=== PATIENT | male | born 1940 | race Caucasian/White ===

== ENCOUNTER → 2016-11-10 | Outpatient (CLI) | payer OTHER, MEDICARE ==
[~2016-11-10] MED LIST: ALLO300T2 PO; AMLO2.5T PO; ASPI81TA82 PO; CARV25TA2 PO; FURO40TA3 PO; LOSA1TAB38 PO; MISCTAB88 PO; MULT-106 PO; PRED-301 PO; SILD100T PO
[2016-11-10 12:10] LABS: HEMATOCRIT 40.1 % (42-52); MEAN CELL VOLUME 91.3 fL (80-100); MEAN CORPUSCULAR HEMOGLOBIN 31.7 pg (25-34); MEAN CORPUSCULAR HGB CONC 34.7 g/dl (32-36); MEAN PLATELET VOLUME 10.2 fL (7.4-10.4); PLATELET COUNT 144 K/uL (130-400); RED BLOOD COUNT 4.39 M/uL (4.7-6.1); WHITE BLOOD COUNT 4.39 K/uL (4.8-10.8)
[2016-11-10 12:39] LABS: ALT/SGPT 35 U/L (12-78); AST/SGOT 17 U/L (15-37); BLOOD UREA NITROGEN 25 mg/dl (7-18); BUN/CREATININE RATIO 20.5 (10-20); CALCIUM 9.3 mg/dl (8.5-10.1); CARBON DIOXIDE 29 mmol/L (21-32); CHLORIDE 107 mmol/L (98-107); GLUCOSE 100 mg/dl (70-99); POTASSIUM 3.9 mmol/L (3.5-5.1); SODIUM 144 mmol/L (136-145)
[2016-11-10 12:41] LABS: ALB/GLOB RATIO 1.1 (0.9-2); ALKALINE PHOSPHATASE 73 U/L (45-117)
== END | disposition home or self-care (01) ==
LOC: C.LAB1850 10:52
PROVIDERS: ATTEND Internal Medicine Cardiovascular Disease
DX: I10 Essential (primary) hypertension (principal); I42.0 Dilated cardiomyopathy; I25.10 Atherosclerotic heart disease of native coronary artery without angina pectoris; E78.5 Hyperlipidemia, unspecified; I50.22 Chronic systolic (congestive) heart failure

== ENCOUNTER → 2016-12-01 | Outpatient (CLI) | payer OTHER, MEDICARE ==
[2016-12-01 16:34] LABS: BLOOD UREA NITROGEN 27 mg/dl (7-18); BUN/CREATININE RATIO 18.1 (10-20); CALCIUM 8.9 mg/dl (8.5-10.1); CARBON DIOXIDE 28 mmol/L (21-32); CHLORIDE 104 mmol/L (98-107); GLUCOSE 97 mg/dl (70-99); POTASSIUM 4.2 mmol/L (3.5-5.1); SODIUM 142 mmol/L (136-145)
== END | disposition home or self-care (01) ==
LOC: C.LAB1850 14:40
PROVIDERS: ATTEND Internal Medicine Cardiovascular Disease
DX: I10 Essential (primary) hypertension (principal); I42.0 Dilated cardiomyopathy; I25.10 Atherosclerotic heart disease of native coronary artery without angina pectoris; E78.5 Hyperlipidemia, unspecified; I50.22 Chronic systolic (congestive) heart failure

== ENCOUNTER → 2016-12-09 | Outpatient (CLI) | payer OTHER, MEDICARE ==
[2016-12-09 13:11] LABS: BLOOD UREA NITROGEN 23 mg/dl (7-18); BUN/CREATININE RATIO 19.5 (10-20); CARBON DIOXIDE 27 mmol/L (21-32); CHLORIDE 105 mmol/L (98-107); GLUCOSE 102 mg/dl (70-99); SODIUM 141 mmol/L (136-145)
== END | disposition home or self-care (01) ==
LOC: C.LAB1850 11:16
PROVIDERS: ATTEND Internal Medicine Cardiovascular Disease
DX: I50.22 Chronic systolic (congestive) heart failure (principal)

== ENCOUNTER → 2017-03-15 | Outpatient (CLI) | payer OTHER, MEDICARE ==
[2017-03-15 14:39] LABS: BASO % 0.7 %; BASO ABS # 0.04 K/uL (0-0.2); COMPLETE YES; HEMATOCRIT 42.5 % (42-52); IG% 0.2 %; LYMPH % 27.2 %; LYMPH ABS # 1.65 K/uL (1.2-3.4); MEAN CELL VOLUME 94.7 fL (80-100); MEAN CORPUSCULAR HEMOGLOBIN 31.2 pg (25-34); MEAN CORPUSCULAR HGB CONC 32.9 g/dl (32-36); MEAN PLATELET VOLUME 9.6 fL (7.4-10.4); MONO % 7.1 %; NEUT % 61.8 %; PLATELET COUNT 179 K/uL (130-400); RED BLOOD COUNT 4.49 M/uL (4.7-6.1); WHITE BLOOD COUNT 6.07 K/uL (4.8-10.8)
[2017-03-15 17:00] LABS: BLOOD UREA NITROGEN 26 mg/dl (7-18); BUN/CREATININE RATIO 26.5 (10-20); CARBON DIOXIDE 28 mmol/L (21-32); CHLORIDE 108 mmol/L (98-107); GLUCOSE 84 mg/dl (70-99); POTASSIUM 4.1 mmol/L (3.5-5.1); SODIUM 141 mmol/L (136-145)
== END | disposition home or self-care (01) ==
LOC: C.LAB1850 13:22
PROVIDERS: ATTEND Internal Medicine Geriatric Medicine
DX: I10 Essential (primary) hypertension (principal); K22.70 Barrett's esophagus without dysplasia; G47.30 Sleep apnea, unspecified; M19.90 Unspecified osteoarthritis, unspecified site; E78.5 Hyperlipidemia, unspecified

== ENCOUNTER → 2017-06-02 | Outpatient (CLI) | payer OTHER, MEDICARE ==
[~2017-06-02] VITALS: Ht 175.3 cm; Wt 97.6 kg
[2017-06-02 13:23] VITALS: BP 117/61; PULSE 58; Ht 175.3 cm; Wt 97.6 kg
== END | disposition home or self-care (01) ==
LOC: C.NEUR 12:42
PROVIDERS: ATTEND Internal Medicine Pulmonary Disease
DX: G47.30 Sleep apnea, unspecified (principal)

== ENCOUNTER → 2017-12-05 | Outpatient (CLI) | payer OTHER, MEDICARE ==
[2017-12-05 12:25] LABS: BASO % 1.2 %; BASO ABS # 0.07 K/uL (0-0.2); EOS % 3.2 %; EOS ABS # 0.18 K/uL (0-0.5); HEMATOCRIT 43.2 % (42-52); HEMOGLOBIN 14.9 g/dL (14.0-18.0); IG# 0.01 K/uL (0.00-0.02); LYMPH % 25.8 %; LYMPH ABS # 1.45 K/uL (1.2-3.4); MEAN CELL VOLUME 94.5 fL (80-100); MEAN CORPUSCULAR HEMOGLOBIN 32.6 pg (25-34); MEAN CORPUSCULAR HGB CONC 34.5 g/dl (32-36); MEAN PLATELET VOLUME 10.1 fL (7.4-10.4); MONO % 11.2 %; MONO ABS # 0.63 K/uL (0.11-0.59); NEUT % 58.4 %; NEUT ABS # 3.27 K/uL (1.4-6.5); PLATELET COUNT 156 K/uL (130-400); RED CELL DISTRIBUTION WIDTH CV 13.9 % (11.5-14.5); RED CELL DISTRIBUTION WIDTH SD 47.5 fL (36.4-46.3); WHITE BLOOD COUNT 5.61 K/uL (4.8-10.8)
[2017-12-05 12:40] LABS: ALT/SGPT 25 U/L (12-78); AST/SGOT 17 U/L (15-37); BLOOD UREA NITROGEN 33 mg/dl (7-18); CALCIUM 9.1 mg/dl (8.5-10.1); CARBON DIOXIDE 27 mmol/L (21-32); CREATININE 1.26 mg/dl (0.60-1.40); GLUCOSE 91 mg/dl (70-99); SODIUM 141 mmol/L (136-145); URIC ACID 5.3 mg/dl (2.6-7.2)
[2017-12-05 12:42] LABS: ALKALINE PHOSPHATASE 73 U/L (45-117); CHOLESTEROL 112 mg/dl (0-200); LDL CHOLESTEROL CALCULATED 52 mg/dl; TOTAL PROTEIN 7.6 gm/dl (6.4-8.2)
== END | disposition home or self-care (01) ==
LOC: C.LAB1850 11:11
PROVIDERS: ATTEND Internal Medicine Geriatric Medicine
DX: I10 Essential (primary) hypertension (principal); I25.10 Atherosclerotic heart disease of native coronary artery without angina pectoris; K22.70 Barrett's esophagus without dysplasia; M19.90 Unspecified osteoarthritis, unspecified site; M10.9 Gout, unspecified; E78.5 Hyperlipidemia, unspecified

== ENCOUNTER → 2018-06-22 | Outpatient (CLI) | payer OTHER, MEDICARE ==
[2018-06-22 12:24] LABS: HEMOGLOBIN A1C 5.3 % (4.5-5.6)
[2018-06-22 12:31] LABS: ALBUMIN 3.7 gm/dl (3.4-5.0); ALKALINE PHOSPHATASE 66 U/L (45-117); ALT/SGPT 24 U/L (12-78); AST/SGOT 15 U/L (15-37); BLOOD UREA NITROGEN 21 mg/dl (7-18); CALCIUM 8.5 mg/dl (8.5-10.1); CARBON DIOXIDE 27 mmol/L (21-32); CHOLESTEROL 89 mg/dl (0-200); GLUCOSE 96 mg/dl (70-99); LDL CHOLESTEROL CALCULATED 26 mg/dl; SODIUM 139 mmol/L (136-145); TOTAL PROTEIN 7.2 gm/dl (6.4-8.2)
== END | disposition home or self-care (01) ==
LOC: C.LAB1850 11:04
PROVIDERS: ATTEND Physician Assistant Medical
DX: Z00.00 Encounter for general adult medical examination without abnormal findings (principal); I25.10 Atherosclerotic heart disease of native coronary artery without angina pectoris

== ENCOUNTER 2021-04-21 15:21 | Observation (INO) ==
--- NOTE | 2021-04-21 16:55 | XRay Report ---
XR chest 1V portable CLINICAL HISTORY: Chest Pain COMPARISON STUDY: Chest radiograph March 11, 2021. FINDINGS: Lung volumes are normal. Lungs are clear. There is no pneumothorax or pleural effusion. Mod erate cardiomegaly is unchanged. Mediastinal contours are normal. There is no evidence for pulmonary edema. IMPRESSION: No acute cardiopulmonary findings. Cardiomegaly. ACT 112: Negative or not required by law. Electronically signed by: Nitin Oliveira M.D. 04/21/2021 4:53 PM
[2021-04-21 17:04] LABS: Basophils # (auto) 0.02 K/uL (0-0.2); Basophils % (auto) 0.2 %; Eosinophils # (auto) 0.02 K/uL (0-0.5); Eosinophils % (auto) 0.2 %; Hematocrit (blood only) 44.4 % (42-52); Hemoglobin 14.9 g/dL (14.0-18.0); Immature Granulocytes # (auto) 0.02 K/uL (0.00-0.02); Immature Granulocytes % (auto) 0.2 %; Lymphocytes # (auto) 0.55 K/uL (1.2-3.4); Mean Corpuscular Hemoglobin 33.2 pg (25-34); Mean Corpuscular Hgb Conc 33.6 g/dL (32-36); Mean Corpuscular Volume 98.9 fL (80-100); Mean Platelet Volume 10.2 fL (7.4-10.4); Monocytes % (auto) 6.3 %; Neutrophils # (auto) 9.79 K/uL (1.4-6.5); Neutrophils % (auto) 88.1 %; Platelet Count 174 K/uL (130-400); RDW Coefficient of Variation 13.8 % (11.5-14.5); RDW Standard Deviation 49.9 fL (36.4-46.3); Red Blood Count 4.49 M/uL (4.7-6.1)
[2021-04-21 17:12] LABS: INR 1.1 (0.9-1.1); Partial Thromboplastin Time 27.1 Seconds (21.0-31.0); Prothrombin Time 10.7 Seconds (9.0-12.0)
[2021-04-21 17:13] LABS: Alanine Aminotransferase 61 U/L (12-78); Albumin Level 4.4 gm/dl (3.4-5.0); Aspartate Aminotransferase 43 U/L (15-37); BUN Creatinine Ratio 21.8 (10-20); Blood Urea Nitrogen 24 mg/dl (7-18); Calcium 10.1 mg/dl (8.5-10.1); Carbon Dioxide 28 mmol/L (21-32); Chloride 105 mmol/L (98-107); Creatinine Clr Calc Pharmacy 60.6 ml/min; Est GFR (African American) 74.4 ml/min; Est GFR (Non-African American) 64.2 ml/min; Glucose 99 mg/dl (70-99); Lipase 68 U/L (73-393); Potassium 4.5 mmol/L (3.5-5.1); Sodium 140 mmol/L (136-145)
[2021-04-21 17:18] LABS: Alkaline Phosphatase 141 U/L (45-117); Bilirubin,Total 1.2 mg/dl (0.2-1); Globulin 4.4 gm/dl (2.5-4.0); Total Protein 8.8 gm/dl (6.4-8.2); Troponin I < 0.015 ng/ml (0-0.045)
[2021-04-21] MEDS ORDERED: FAMOTIDINE 20MG IV PUSH 20 MG/5 ML SYR IV STA (19:37)
[2021-04-21] MEDS ORDERED: diphenhydrAMINE 50 MG/ML VIAL IV STA (19:37)
[2021-04-21] MEDS ORDERED: ONDANSETRON INJ 2 MG/ML 2 ML VIAL IV STA (19:42)
[2021-04-21] MEDS ORDERED: methylPREDNISolone 125 MG/2 ML VIAL IV STA (19:42)
--- NOTE | 2021-04-21 19:42 | Emergency Department Note ---
Impression & Plan Abdominal pain, SBO (small bowel obstruction) ED Provider Note NAME: CASSANDRA BURNS AGE: 80 SEX: M : 1940 ARRIVES VIA: Walk-In INFORMANT: Patient, ED PROVIDER(S): Luis Miguel Martínez MD CHIEF COMPLAINT: abd pain HPI: This 80-year-old male who presents to the emergency department. The patient reports he and his were attending a today. The patient's reports that the patient has a history of issues with peanuts. The patient reports that he ate peanut butter on celery today before the and began having severe abdominal pain. Due to the complex medical history of the dorian ent's heart including a lesion in the LAD they did not take anything for pain as they were concerned that that could cause issues with the patient's heart. The patient reports the pain is a burning sensation. He reports vomiting upon arrival to the emergency department which caused the pain to feel better. He reports nothing makes the pain worse although the pain is starting to come back. He describes the pain as a spasm in nature with no radiation. ROS: See above HPI for pertinent positives & negatives. A total of 10 systems reviewed and were otherwise negative. PAST MEDICAL HISTORY: See Below PAST SURGICAL HISTORY: See Below FAMILY HISTORY: See Below SOCIAL HISTORY: See Below HOME MEDICATIONS: See Below ALLERGIES: See Below VITALS: See Below PHYSICAL EXAMINATION: VITAL SIGNS - Vital signs and nursing notes were reviewed. GENERAL - 80-year-old male appearing stated age who is in no acute distress. Communicates well with provider and answers questions appropriately. SKIN - Without rashes. HEAD - NC/AT. EYES - PERRL with EOMI bilaterally. Sclera anicteric. Palpebral conjunctiva pink and moist with no injection noted. EARS - No deformities of external structures noted on gross examination bilaterally. NOSE - Midline and without cyanosis. No epistaxis or purulent drainage noted. Septum midline without deviation or septal hematoma noted. MOUTH/OROPHARYNX - Without perioral cyanosis. Buccal mucosa pink and moist and without leukoplakia. Tongue midline with equal elevation of palate bilaterally. No tonsillar hypertrophy, erythema, or exudates noted. NECK - Neck with FROM. Supple to palpation. No nuchal rigidity. LUNGS - Chest wall symmetric without accessory muscle use, intercostals retractions, or central cyanosis. Normal vesicular breath sounds CTA B/L. No wheezes, rales, or rhonchi appreciated. CARDIAC - RRR with S1/S2. No murmur, rubs, or gallops appreciated. ABDOMEN - Abdominal contour without pulsations or visible masses. BS normoactive all four quadrants. Tender in epigastric area EXTREMITIES - No clubbing or peripheral cyanosis. No pretibial edema present. +3/5 radial, posterior tibial, and dorsalis pedis pulses palpated throughout. +5/5 strength noted in UE/LE bilaterally. NEUROLOGIC - Cranial nerves II through XII grossly intact. Sensory intact to light touch throughout. Patellar reflexes +2/4. PSYCH - A&Ox3 and cooperates fully with examiner. Pt is very pleasant and interacts well with examiner. MEDICAL DECISION MAKING: Patient was seen and evaluated as above in room C3. Review was performed of nursing notes and vital signs. I did review pertinent previous visits and patient history. After obtaining a thorough history and physical examination the above work up was performed. 80-year-old male who presents to the emergency department complaining of abdominal pain. The patient was given Solu-Medrol Benadryl and Pepcid. Repeat examination revealed improvement the patient's symptoms. I will note that the patient does not have an elevation in his white blood cell count however his CAT scan is concerning for a small bowel obstruction. Based on this I did discuss the case with both surgery as well as the medicine service who did agree to admit the patient. Both patient and are in agreement with treatment plan. An order was placed for continuous cardiac monitoring. The monitor shows a rate of 76 with Atrial Fib rhythm. The patient was evaluated during a period of high volume and high acuity during the global COVID-19 pandemic, and that diagnosis was suspected/considered upon their initial presentation. Their evaluation, treatment and testing was consistent with current guidelines for patients who present with complaints or symptoms that may be related to COVID-19. Patient was seen while provider was wearing PPE. Triage Nursing notes reviewed. Prior medical records reviewed Vital Signs: reviewed and remarkable for no significant abnormalities Differential diagnosis: Cardiac ischemia, aortic dissection, pulmonary embolism, pneumothorax, pneumonia, pericarditis, myocarditis, esophageal rupture, GERD, cholecystitis, pancreatitis, musculoskeletal, as well as other pathologies. ER treatment provided: See below Diagnostics interpreted by me: ECG: Atrial fib old anterior infarct QTC is 469 ventricular rate is [address] elevation or depression when compared with EKG of 09/15/2013 A. fib has replaced sinus rhythm anterior infarct is now present T wave inversion is no longer evident in the inferior leads. Repeat EKG shows atrial fibrillation old anterior infarct QTC is 467 ventricular rate is [address] elevation or depression it is unchanged from the previous EKG Laboratory studies: As stated above and show below. Imaging studies: CT abdomen pelvis with contrast: No prior exam for comparison. Multiple loops of small bowel distended up to 2.7 to 3.0 cm raising concern for small bowel obstruction. Zone of transition is indeterminate and likely within the mid distal ileum. There is a small bowel wall thickening such as image 31 series 2. Differential diagnosis therefore includes nonspecific enteritis versus inflammatory bowel disease, correlation with history of Crohn's recommended. Mild bilateral lower lobe atelectasis. Normal cardiac size with coronary artery calcifications. Unremarkable gallbladder and biliary system. Small low- attenuation lesion within the liver measuring 6 mm. Too small to characterize and likely benign such as a cyst. Normal bilateral adrenal glands. Normal spleen. Normal visualized pancreas. Mild bilateral perinephric stranding. Left-sided renal cysts. Largest seen within the lower pole measuring 3.2 cm maximal dimension. Small left-sided renal cyst. Largest seen in the mid upper pole measuring 1.2 cm. Remainder bilateral kidneys unremarkable. Unremarkable urinary bladder. Marked enlargement of the prostate gland with an indentation and invagination into the posterior urinary bladder. The prostate gland measures approximately 5 cm in craniocaudal dimension by 4.0 cm in AP dimension by 4.3 cm in transverse dimension. Unremarkable stomach normal appendix. The descending colon is decompressed. 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 Atherosclerotic disease of aorta with no aneurysm. Consultation(s): Gen Surgery Int Medicine Past Med/Surg History Medical History (Updated 04/24/21 @ 06:34 by Luis Miguel Martínez MD) Atrial fibrillation, permanent on eliquis--follows with Dr. Craig Robertson's esophagus Chronic anticoagulation eliquis bid Chronic systolic CHF (congestive heart failure) Coronary artery disease Dilated cardiomyopathy Esophageal stricture History of basal cell carcinoma Hyperlipidemia Hypertension Insomnia Obstructive sleep apnea does not use CPAP as ordered Osteoarthritis Surgical History History of bilateral cataract extraction History of cardiac cath 2010 @ [facility]--no stents History of colonoscopy with polypectomy History of esophagogastroduodenoscopy (EGD) History of intestinal surgery occured at age 3 days old, pt unsure of details. Denies any GI abnormalities or complications. History of repair of rotator cuff left Family History Grandfather Myocardial infarction Daughter Pancreatic cancer Hypothyroidism Father Stroke Other Hypertension No family history of adverse response to anesthesia Denies family history of Colon cancer Ovarian cancer Prostate cancer Breast cancer Social History Smoking Status: Never smoker Second Hand Exposure: No; Hx Alcohol Use: Yes Alcohol type: wine Alcohol Intake Frequency: 2-3 x/Week Alcohol Intake Frequency Comment: 1 times weekly Hx Substance Use: No Preferred Language: Burmese Communication Ability: Effective Visual Impairment: Diminished Hearing Ability: Normal Flooring Helper Required: No Beliefs That Will Affect Care: None marital status: Current Living Situation: Spouse current occupational status: retired Feels Safe at Home: Yes Childhood Exposure to Second-Hand Smoke: Yes Diet Comment: Elana's type diet from time to time caffeine: No Dental Care, Regularly: Yes Physical Activity Frequency: 1-2 Times per Week Physical Activity Frequency Comment: treadmill,weights Seatbelt Use: always Sunscreen Use: Yes Do you think of yourself as: straight/heterosexual Assistive Devices: Glasses Allergies Allergies Allergy/AdvReac Type Severity Reaction Status Date / Time lisinopril AdvReac Mild Cough. Verified 04/21/21 20:31 Home Meds Home Medications Medication Instructions Recorded Confirmed omeprazole 40 mg PO QAM 10/20/20 04/21/21 Joint Health 1 tab PO QAM 04/21/21 04/21/21 multivitamin 1 tab PO QAM 04/21/21 04/21/21 Previous Rx's Medication Instructions Recorded atorvastatin 40 mg tablet 40 mg PO HS #90 tab 09/26/20 carvedilol 25 mg tablet 25 mg PO BID #180 tab 09/26/20 sacubitril 97 mg-valsartan 103 mg 1 tab PO BID #180 tab 10/20/20 tablet loperamide 2 mg tablet 1 mg PO DAILY PRN #15 tab 12/02/20 furosemide 40 mg tablet 40 mg PO QAM #90 tab 12/17/20 apixaban 5 mg tablet 5 mg PO BID #180 tab 01/13/21 allopurinol 300 mg tablet 300 mg PO HS #90 tab 03/31/21 Results & Data (ED) Vital Signs Vital Signs - 24 hr 04/21/21 15:29 04/21/21 19:01 04/21/21 19:15 Temperature 36.4 C L Temperature Source Temporal Artery Scan Pulse Rate 85 82 82 Pulse Rate from SpO2 Sensor 80 83 Respiratory Rate 16 13 18 Blood Pressure 146/94 H 146/91 H Blood Pressure Mean 111 109 Pulse Oximetry 97 99 98 Oxygen Delivery Method Room Air Sepsis Recent Fever Within 48 Hours No Sepsis New/Unexplained Change in Mental Status N/A Sepsis Action Taken by Nursing No Action Required 04/21/21 19:30 04/21/21 19:52 04/21/21 20:00 Temperature Temperature Source Pulse Rate 86 80 81 Pulse Rate from SpO2 Sensor 86 81 80 Respiratory Rate 20 21 20 Blood Pressure 131/73 Blood Pressure Mean 92 Pulse Oximetry 97 95 92 Oxygen Delivery Method Sepsis Recent Fever Within 48 Hours Sepsis New/Unexplained Change in Mental Status Sepsis Action Taken by Nursing 04/21/21 20:30 04/21/21 21:08 Temperature Temperature Source Pulse Rate 76 76 Pulse Rate from SpO2 Sensor 76 77 Respiratory Rate 20 21 Blood Pressure 122/63 119/71 Blood Pressure Mean 82 87 Pulse Oximetry 94 96 Oxygen Delivery Method Room Air Room Air Sepsis Recent Fever Within 48 Hours Sepsis New/Unexplained Change in Mental Status Sepsis Action Taken by Nursing Laboratory Data Result diagrams: 04/22/21 08:27 04/22/21 08:27 Lab Results 04/21/21 04/21/21 04/21/21 Range/Units 16:44 16:44 16:44 WBC 11.10 H (4.8-10.8) K/uL RBC 4.49 L (4.7-6.1) M/uL Hgb 14.9 (14.0-18.0) g/dL Hct 44.4 (42-52) % MCV 98.9 (80-100) fL MCH 33.2 (25-34) pg MCHC 33.6 (32-36) g/dL RDW Std Deviation 49.9 H (36.4-46.3) fL RDW Coeff of Rosario 13.8 (11.5-14.5) % Plt Count 174 (130-400) K/uL MPV 10.2 (7.4-10.4) fL Immature Gran % (Auto) 0.2 % Neut % (Auto) 88.1 % Lymph % (Auto) 5.0 % Ponce % (Auto) 6.3 % Eos % (Auto) 0.2 % Baso % (Auto) 0.2 % Neut # (Auto) 9.79 H (1.4-6.5) K/uL Lymph # (Auto) 0.55 L (1.2-3.4) K/uL Ponce # (Auto) 0.70 H (0.11-0.59) K/uL Eos # (Auto) 0.02 (0-0.5) K/uL Baso # (Auto) 0.02 (0-0.2) K/uL Immature Gran # (Auto) 0.02 (0.00-0.02) K/uL PT 10.7 (9.0-12.0) Seconds INR 1.1 (0.9-1.1) APTT 27.1 (21.0-31.0) Seconds PTT Ratio 1.0 Sodium 140 (136-145) mmol/L Potassium 4.5 (3.5-5.1) mmol/L Chloride 105 (98-107) mmol/L Carbon Dioxide 28 (21-32) mmol/L Anion Gap 7.0 (3-11) BUN 24 H (7-18) mg/dl Creatinine 1.09 (0.6-1.4) mg/dl Est Cr Clr Drug Dosing 60.6 ml/min Est GFR ( Amer) 74.4 ml/min Est GFR (Non-Af Amer) 64.2 ml/min BUN/Creatinine Ratio 21.8 H (10-20) Glucose 99 (70-99) mg/dl Calcium 10.1 (8.5-10.1) mg/dl Total Bilirubin 1.2 H (0.2-1) mg/dl AST 43 H (15-37) U/L ALT 61 (12-78) U/L Alkaline Phosphatase 141 H (45-117) U/L Troponin I < 0.015 (0-0.045) ng/ml NT-Pro-B Natriuret Pep (0-1800) pg/ml Total Protein 8.8 H (6.4-8.2) gm/dl Albumin 4.4 (3.4-5.0) gm/dl Globulin 4.4 H (2.5-4.0) gm/dl Albumin/Globulin Ratio 1.0 (0.9-2) Lipase 68 L (73-393) U/L COVID-19 Eval Order SARS-CoV-2 (PCR) (Negative) 04/21/21 04/21/21 04/21/21 Range/Units 16:44 19:55 19:55 WBC (4.8-10.8) K/uL RBC (4.7-6.1) M/uL Hgb (14.0-18.0) g/dL Hct (42-52) % MCV (80-100) fL MCH (25-34) pg MCHC (32-36) g/dL RDW Std Deviation (36.4-46.3) fL RDW Coeff of Rosario (11.5-14.5) % Plt Count (130-400) K/uL MPV (7.4-10.4) fL Immature Gran % (Auto) % Neut % (Auto) % Lymph % (Auto) % Ponce % (Auto) % Eos % (Auto) % Baso % (Auto) % Neut # (Auto) (1.4-6.5) K/uL Lymph # (Auto) (1.2-3.4) K/uL Ponce # (Auto) (0.11-0.59) K/uL Eos # (Auto) (0-0.5) K/uL Baso # (Auto) (0-0.2) K/uL Immature Gran # (Auto) (0.00-0.02) K/uL PT (9.0-12.0) Seconds INR (0.9-1.1) APTT (21.0-31.0) Seconds PTT Ratio Sodium (136-145) mmol/L Potassium (3.5-5.1) mmol/L Chloride (98-107) mmol/L Carbon Dioxide (21-32) mmol/L Anion Gap (3-11) BUN (7-18) mg/dl Creatinine (0.6-1.4) mg/dl Est Cr Clr Drug Dosing ml/min Est GFR ( Amer) ml/min Est GFR (Non-Af Amer) ml/min BUN/Creatinine Ratio (10-20) Glucose (70-99) mg/dl Calcium (8.5-10.1) mg/dl Total Bilirubin (0.2-1) mg/dl AST (15-37) U/L ALT (12-78) U/L Alkaline Phosphatase (45-117) U/L Troponin I (0-0.045) ng/ml NT-Pro-B Natriuret Pep 6951 H (0-1800) pg/ml Total Protein (6.4-8.2) gm/dl Albumin (3.4-5.0) gm/dl Globulin (2.5-4.0) gm/dl Albumin/Globulin Ratio (0.9-2) Lipase (73-393) U/L COVID-19 Eval Order Covid19 at [facility] SARS-CoV-2 (PCR) NEGATIVE (Negative) 04/21/21 Range/Units 21:04 WBC (4.8-10.8) K/uL RBC (4.7-6.1) M/uL Hgb (14.0-18.0) g/dL Hct (42-52) % MCV (80-100) fL MCH (25-34) pg MCHC (32-36) g/dL RDW Std Deviation (36.4-46.3) fL RDW Coeff of Rosario (11.5-14.5) % Plt Count (130-400) K/uL MPV (7.4-10.4) fL Immature Gran % (Auto) % Neut % (Auto) % Lymph % (Auto) % Ponce % (Auto) % Eos % (Auto) % Baso % (Auto) % Neut # (Auto) (1.4-6.5) K/uL Lymph # (Auto) (1.2-3.4) K/uL Ponce # (Auto) (0.11-0.59) K/uL Eos # (Auto) (0-0.5) K/uL Baso # (Auto) (0-0.2) K/uL Immature Gran # (Auto) (0.00-0.02) K/uL PT (9.0-12.0) Seconds INR (0.9-1.1) APTT (21.0-31.0) Seconds PTT Ratio Sodium (136-145) mmol/L Potassium (3.5-5.1) mmol/L Chloride (98-107) mmol/L Carbon Dioxide (21-32) mmol/L Anion Gap (3-11) BUN (7-18) mg/dl Creatinine (0.6-1.4) mg/dl Est Cr Clr Drug Dosing ml/min Est GFR ( Amer) ml/min Est GFR (Non-Af Amer) ml/min BUN/Creatinine Ratio (10-20) Glucose (70-99) mg/dl Calcium (8.5-10.1) mg/dl Total Bilirubin (0.2-1) mg/dl AST (15-37) U/L ALT (12-78) U/L Alkaline Phosphatase (45-117) U/L Troponin I < 0.015 (0-0.045) ng/ml NT-Pro-B Natriuret Pep (0-1800) pg/ml Total Protein (6.4-8.2) gm/dl Albumin (3.4-5.0) gm/dl Globulin (2.5-4.0) gm/dl Albumin/Globulin Ratio (0.9-2) Lipase (73-393) U/L COVID-19 Eval Order SARS-CoV-2 (PCR) (Negative) Administered Medications Discontinued Medications Allopurinol (Allopurinol 300 Mg Tab) 300 mg PO HS FERNANDO Stop: 05/22/21 16:24 Last Admin: 04/22/21 17:38 Dose: 300 mg Documented by: [id number] Apixaban (Apixaban 5 Mg Tablet) 5 mg PO BID FERNANDO Stop: 05/22/21 16:24 Last Admin: 04/22/21 17:38 Dose: 5 mg Documented by: [id number] Atorvastatin Calcium (Atorvastatin 40 Mg Tab) 40 mg PO HS FERNANDO Stop: 05/22/21 16:24 Last Admin: 04/22/21 17:39 Dose: 40 mg Documented by: [id number] Carvedilol (Carvedilol 25 Mg Tab) 25 mg PO BID FERNANDO Stop: 05/22/21 16:24 Last Admin: 04/22/21 17:38 Dose: 25 mg Documented by: [id number] Diphenhydramine HCl (Diphenhydramine 50 Mg/Ml Vial) 25 mg IV NOW STA Stop: 04/21/21 19:38 Last Admin: 04/21/21 19:52 Dose: 25 mg Documented by: [id number] Furosemide (Furosemide 40 Mg/4 Ml Vial) 20 mg IV NOW STA Stop: 04/21/21 23:06 Last Admin: 04/21/21 23:16 Dose: 20 mg Documented by: [id number] Heparin Sodium/Dextrose (Heparin Iv Adult Wt-Based Standard *No* Bolus Protocol) 1 ea N/A ONE ONE; Protocol Stop: 04/22/21 00:08 Last Admin: 04/22/21 00:28 Dose: Not Given Documented by: [id number] Famotidine (Pepcid 20mg Iv Push) 20 mg in 5 mls @ 2.5 mls/min IV NOW STA Stop: 04/21/21 19:38 Last Admin: 04/21/21 19:52 Dose: 2.5 mls/min Documented by: [id number] Sodium Chloride (Nss 1000ml) 500 mls @ 999 mls/hr IV .Q31M ONE Stop: 04/21/21 22:38 Last Infusion: 04/21/21 22:57 Dose: 0 mls/hr Documented by: [id number] Admin: 04/21/21 22:17 Dose: 999 mls/hr Documented by: [id number] Heparin Sodium/Dextrose (Heparin Sodium/Dextrose) 25,000 units in 500 mls @ 28 mls/hr IV .[id number] [facility]; Protocol Stop: 05/22/21 00:21 Last Titration: 04/22/21 16:32 Dose: 0 units/hr, 0 mls/hr Documented by: [id number] Cosigned by: [id number] Titration: 04/22/21 11:27 Dose: 1,100 units/hr, 22 mls/hr Documented by: [id number] Cosigned by: [id number] Titration: 04/22/21 09:20 Dose: 0 units/hr, 0 mls/hr Documented by: [id number] Cosigned by: [id number] Titration: 04/22/21 07:03 Dose: 1,400 units/hr, 28 mls/hr Documented by: [id number] Cosigned by: [id number] Admin: 04/22/21 02:05 Dose: 1,400 units/hr, 28 mls/hr Documented by: [id number] Cosigned by: [id number] Furosemide 20 mg/ Syringe 2 mls @ 4 mls/min IV QAM [facility] Stop: 05/22/21 08:59 Last Admin: 04/22/21 09:47 Dose: 4 mls/min Documented by: [id number] Ioversol (Optiray 320 100ml) 94 ml IV ONCE ONE Stop: 04/21/21 20:46 Last Admin: 04/21/21 20:46 Dose: 94 ml Documented by: [id number] Methylprednisolone (Methylprednisolone 125 Mg/2 Ml Vial) 60 mg IV NOW STA Stop: 04/21/21 19:43 Last Admin: 04/21/21 19:52 Dose: 60 mg Documented by: [id number] Ondansetron HCl (Ondansetron Inj 2 Mg/Ml 2 Ml Vial) 4 mg IV NOW STA Stop: 04/21/21 19:43 Last Admin: 04/21/21 19:52 Dose: 4 mg Documented by: [id number] Sacubitril/Valsartan (Sacubitril-Valsartan 97-103 Mg Tab) 1 tab PO BID [facility] Stop: 05/22/21 16:24 Last Admin: 04/22/21 17:37 Dose: 1 tab Documented by: [id number] Imaging Data Radiologist's Impression: Chest X-Ray 04/21/21 16:38 XR chest 1V portable CLINICAL HISTORY: Chest Pain COMPARISON STUDY: Chest radiograph March 11, 2021. FINDINGS: Lung volumes are normal. Lungs are clear. There is no pneumothorax or pleural effusion. Moderate cardiomegaly is unchanged. Mediastinal contours are normal. There is no evidence for pulmonary edema. IMPRESSION: No acute cardiopulmonary findings. Cardiomegaly. ACT 112: Negative or not required by law. Electronically signed by: Nitin Oliveira M.D. 04/21/2021 4:53 PM Discharge Plan Visit Data Chief Complaint: Cardiac Assessment Stated Complaint: HX OF CARDIAC,ABD PAIN ED Provider: Luis Miguel Martínez Discharge Problem: Abdominal pain, SBO (small bowel obstruction) Patient Disposition: Admitted As Inpatient Discharge Instructions Interventions: ED Discharge Assessment Last Done: 04/22/21 00:54 Discharge Problem: Abdominal pain Qualifiers: Abdominal location: unspecified location Qualified Code(s): R10.9 - Unspecified abdominal pain
[2021-04-21] MEDS ORDERED: OPTIRAY 320 100ml IV ONE (20:45)
[2021-04-21] MEDS ORDERED: SODIUM CHLORIDE 0.9% 1000ML 500 ML IV ONE (22:08)
--- NOTE | 2021-04-21 22:47 | History & Physical Report ---
Date of Service April 21, 2021 Assessment & Plan (1) Small bowel obstruction: Merrill Elder is a 80-year-old male with extensive past medical history of coronary artery disease, recently seen by [facility] for consideration of CABG, as he is continued to be followed with [facility]; who presents for concerns of abdominal pain and distention earlier in the day following eating some peanut butter. Small bowel obstruction: -CT abdomen pelvis demonstrating concerns for small bowel obstruction versus ileitis -As pain is currently well controlled and he is not having any symptoms we will hold off on NG placement -Consideration of placement of NG should distention or increased abdominal pain occur -N.p.o. at this time -Surgery consulted: Will continue to follow along Acute on chronic systolic congestive heart failure: -BNP elevated on admission -Continue converted home diuretic via IV at this time -See if additional dose of IV Lasix in ED Atrial fibrillation: -EKG in ED continue to demonstrate atrial fibrillation -Holding Eliquis while n.p.o. for small bowel obstruction -Started on heparin gtt for continued anticoagulation while n.p.o. Coronary artery disease: -Cardiology consulted: As patient wants to continue to discuss CABG options versus potential alternative medication routes Diet: NPO CODE STATUS: Full code DVT prophylaxis: Heparin gtt (2) Atrial fibrillation, permanent: (3) Chronic systolic CHF (congestive heart failure): (4) Coronary artery disease: (5) Hyperlipidemia: History of Present Illness Primary Care Provider: Hu Dorsey DO Merrill Elder is a 80-year-old male with extensive past medical history of coronary artery disease, recently seen by [facility] for consideration of CABG, as he is continued to be followed with [facility]; who presents for concerns of abdominal pain and distention earlier in the day following eating some peanut butter. Earlier in the day he was going to a , had prior to that some toast with celery and peanut butter and a banana, shortly thereafter he started to notice he was having some discomfort across his abdomen. This is not the first time he has had similar kind of feeling, 9 years ago while at a [employer] football game he had eaten many peanuts has had a similar reaction and ended up in the hospital for a small bowel obstruction at that time. This is happened one other time in the intervening time but only associated with peanuts. Does eat peanut butter on a regular basis and had never had this kind of reaction before. In the ED received Benadryl, Solu-Medrol, Pepcid which alleviated the pain, however given the distention and CT imaging decision for admission was made. Of note he was scheduled to see cardiology Dr. Craig tomorrow, for continued discussions regarding his coronary artery disease following recent visit down to [facility] and evaluation of potential CABG versus coronary artery stenting for LAD lesion. As he is going to be admitted desires to have these conversations inpatient and would like Dr. Craig if he is available to continue his conversations. He is currently not having any chest pain, shortness of breath, palpitations, nausea, vomiting, abdominal pain, changes in bowel movements, lightheadedness, or dizziness. Allergies Allergy/AdvReac Type Severity Reaction Status Date / Time lisinopril AdvReac Mild Cough. Verified 04/21/21 20:31 Home Medications Medication Instructions Recorded Confirmed Type atorvastatin 40 mg tablet 40 mg PO HS #90 tab 09/26/20 04/21/21 Rx carvedilol 25 mg tablet 25 mg PO BID #180 tab 09/26/20 04/21/21 Rx omeprazole 40 mg PO QAM 10/20/20 04/21/21 History sacubitril 97 mg-valsartan 103 mg 1 tab PO BID #180 tab 10/20/20 04/21/21 Rx tablet loperamide 2 mg tablet 1 mg PO DAILY PRN #15 tab 12/02/20 04/21/21 Rx furosemide 40 mg tablet 40 mg PO QAM #90 tab 12/17/20 04/21/21 Rx apixaban 5 mg tablet 5 mg PO BID #180 tab 01/13/21 04/21/21 Rx allopurinol 300 mg tablet 300 mg PO HS #90 tab 03/31/21 04/21/21 Rx [facility] 1 tab PO QAM 04/21/21 04/21/21 History multivitamin 1 tab PO QAM 04/21/21 04/21/21 History Past Med/Surg History Medical History (Updated 04/22/21 @ 00:05 by Bandar Briggs MD) Atrial fibrillation, permanent on eliquis--follows with Dr. Craig Robertson's esophagus Chronic anticoagulation eliquis bid Chronic systolic CHF (congestive heart failure) Coronary artery disease Dilated cardiomyopathy Esophageal stricture History of basal cell carcinoma Hyperlipidemia Hypertension Insomnia Obstructive sleep apnea does not use CPAP as ordered Osteoarthritis Surgical History History of bilateral cataract extraction History of cardiac cath 2010 @ [facility]--no stents History of colonoscopy with polypectomy History of esophagogastroduodenoscopy (EGD) History of intestinal surgery occured at age 3 days old, pt unsure of details. Denies any GI abnormalities or complications. History of repair of rotator cuff left Family History Grandfather Myocardial infarction Daughter Pancreatic cancer Hypothyroidism Father Stroke Other Hypertension No family history of adverse response to anesthesia Denies family history of Colon cancer Ovarian cancer Prostate cancer Breast cancer Social History Smoking Status: Never smoker Second Hand Exposure: No; Hx Alcohol Use: Yes Alcohol type: wine Alcohol Intake Frequency: 2-3 x/Week Alcohol Intake Frequency Comment: 1 times weekly Hx Substance Use: No Preferred Language: Mongolian Communication Ability: Effective Visual Impairment: Diminished Hearing Ability: Normal Income Tax Auditor Required: No Beliefs That Will Affect Care: None marital status: Current Living Situation: Spouse current occupational status: retired Feels Safe at Home: Yes Childhood Exposure to Second-Hand Smoke: Yes Diet Comment: Elana's type diet from time to time caffeine: No Dental Care, Regularly: Yes Physical Activity Frequency: 1-2 Times per Week Physical Activity Frequency Comment: treadmill,weights Seatbelt Use: always Sunscreen Use: Yes Do you think of yourself as: straight/heterosexual Assistive Devices: Glasses Review of Systems Review of Systems: All systems reviewed & are unremarkable except as noted in HPI & below Physical Exam Constitutional: WD/WN, vitals as above Eyes: PERRL, conjunctivae normal, anicteric sclerae Respiratory: normal respiratory effort, lungs clear to auscultation Auscultation: no crackles, no rales, no rhonchi and no wheezes Cardiovascular: Rate/Rhythm: + irregularly irregular Heart Sounds: no gallop, no murmur and no cardiac rub Vessels: normal peripheral pulses; no JVD Extremities: no edema Gastrointestinal (Abdomen): Inspection/Auscultation: normal bowel sounds; abdomen not distended Percussion/Palpation: abdomen soft and normal to percussion; abdomen nontender and no guarding Musculoskeletal: no cyanosis or clubbing, extremities motor strength 5/5 Skin: no rashes, warm and dry Neurologic: PERRL, EOMI, accommodation nl, no face palsy, no dysarthria CN's II-XI intact bilaterally and moves all extremities Psychiatric: Orientation: alert and oriented x 3 Results & Data Results & Data ([facility]) Vital Signs (Past 12 Hours) Vital Signs Temp Pulse Resp BP Pulse Ox 04/21/21 22:00 73 17 127/73 96 04/21/21 21:30 77 20 125/70 93 04/21/21 21:09 78 21 96 04/21/21 21:08 76 21 119/71 96 04/21/21 20:30 76 20 122/63 94 04/21/21 20:00 81 20 92 04/21/21 19:52 80 21 131/73 95 04/21/21 19:30 86 20 97 04/21/21 19:15 82 18 98 04/21/21 19:01 82 13 146/91 H 99 04/21/21 15:29 36.4 C L 85 16 146/94 H 97 Laboratory Results 04/21/21 04/21/21 04/21/21 Range/Units 21:04 19:55 19:55 WBC (4.8-10.8) K/uL RBC (4.7-6.1) M/uL Hgb (14.0-18.0) g/dL Hct (42-52) % MCV (80-100) fL MCH (25-34) pg MCHC (32-36) g/dL RDW Std Deviation (36.4-46.3) fL RDW Coeff of Rosario (11.5-14.5) % Plt Count (130-400) K/uL MPV (7.4-10.4) fL Immature Gran % (Auto) % Neut % (Auto) % Lymph % (Auto) % [place] % (Auto) % Eos % (Auto) % Baso % (Auto) % Neut # (Auto) (1.4-6.5) K/uL Lymph # (Auto) (1.2-3.4) K/uL [place] # (Auto) (0.11-0.59) K/uL Eos # (Auto) (0-0.5) K/uL Baso # (Auto) (0-0.2) K/uL Immature Gran # (Auto) (0.00-0.02) K/uL PT (9.0-12.0) Seconds INR (0.9-1.1) APTT (21.0-31.0) Seconds PTT Ratio Sodium (136-145) mmol/L Potassium (3.5-5.1) mmol/L Chloride (98-107) mmol/L Carbon Dioxide (21-32) mmol/L Anion Gap (3-11) BUN (7-18) mg/dl Creatinine (0.6-1.4) mg/dl Est Cr Clr Drug Dosing ml/min Est GFR ( Amer) ml/min Est GFR (Non-Af Amer) ml/min BUN/Creatinine Ratio (10-20) Glucose (70-99) mg/dl Calcium (8.5-10.1) mg/dl Total Bilirubin (0.2-1) mg/dl AST (15-37) U/L ALT (12-78) U/L Alkaline Phosphatase (45-117) U/L Troponin I < 0.015 (0-0.045) ng/ml NT-Pro-B Natriuret Pep (0-1800) pg/ml Total Protein (6.4-8.2) gm/dl Albumin (3.4-5.0) gm/dl Globulin (2.5-4.0) gm/dl Albumin/Globulin Ratio (0.9-2) Lipase (73-393) U/L COVID-19 Eval Order Covid19 at [facility] SARS-CoV-2 (PCR) NEGATIVE (Negative) 04/21/21 04/21/21 04/21/21 Range/Units 16:44 16:44 16:44 WBC (4.8-10.8) K/uL RBC (4.7-6.1) M/uL Hgb (14.0-18.0) g/dL Hct (42-52) % MCV (80-100) fL MCH (25-34) pg MCHC (32-36) g/dL RDW Std Deviation (36.4-46.3) fL RDW Coeff of Rosario (11.5-14.5) % Plt Count (130-400) K/uL MPV (7.4-10.4) fL Immature Gran % (Auto) % Neut % (Auto) % Lymph % (Auto) % [place] % (Auto) % Eos % (Auto) % Baso % (Auto) % Neut # (Auto) (1.4-6.5) K/uL Lymph # (Auto) (1.2-3.4) K/uL [place] # (Auto) (0.11-0.59) K/uL Eos # (Auto) (0-0.5) K/uL Baso # (Auto) (0-0.2) K/uL Immature Gran # (Auto) (0.00-0.02) K/uL PT 10.7 (9.0-12.0) Seconds INR 1.1 (0.9-1.1) APTT 27.1 (21.0-31.0) Seconds PTT Ratio 1.0 Sodium 140 (136-145) mmol/L Potassium 4.5 (3.5-5.1) mmol/L Chloride 105 (98-107) mmol/L Carbon Dioxide 28 (21-32) mmol/L Anion Gap 7.0 (3-11) BUN 24 H (7-18) mg/dl Creatinine 1.09 (0.6-1.4) mg/dl Est Cr Clr Drug Dosing 60.6 ml/min Est GFR ( Amer) 74.4 ml/min Est GFR (Non-Af Amer) 64.2 ml/min BUN/Creatinine Ratio 21.8 H (10-20) Glucose 99 (70-99) mg/dl Calcium 10.1 (8.5-10.1) mg/dl Total Bilirubin 1.2 H (0.2-1) mg/dl AST 43 H (15-37) U/L ALT 61 (12-78) U/L Alkaline Phosphatase 141 H (45-117) U/L Troponin I < 0.015 (0-0.045) ng/ml NT-Pro-B Natriuret Pep 6951 H (0-1800) pg/ml Total Protein 8.8 H (6.4-8.2) gm/dl Albumin 4.4 (3.4-5.0) gm/dl Globulin 4.4 H (2.5-4.0) gm/dl Albumin/Globulin Ratio 1.0 (0.9-2) Lipase 68 L (73-393) U/L COVID-19 Eval Order SARS-CoV-2 (PCR) (Negative) 04/21/21 Range/Units 16:44 WBC 11.10 H (4.8-10.8) K/uL RBC 4.49 L (4.7-6.1) M/uL Hgb 14.9 (14.0-18.0) g/dL Hct 44.4 (42-52) % MCV 98.9 (80-100) fL MCH 33.2 (25-34) pg MCHC 33.6 (32-36) g/dL RDW Std Deviation 49.9 H (36.4-46.3) fL RDW Coeff of Rosario 13.8 (11.5-14.5) % Plt Count 174 (130-400) K/uL MPV 10.2 (7.4-10.4) fL Immature Gran % (Auto) 0.2 % Neut % (Auto) 88.1 % Lymph % (Auto) 5.0 % [place]t % (Auto) 6.3 % Eos % (Auto) 0.2 % Baso % (Auto) 0.2 % Neut # (Auto) 9.79 H (1.4-6.5) K/uL Lymph # (Auto) 0.55 L (1.2-3.4) K/uL [place]t # (Auto) 0.70 H (0.11-0.59) K/uL Eos # (Auto) 0.02 (0-0.5) K/uL Baso # (Auto) 0.02 (0-0.2) K/uL Immature Gran # (Auto) 0.02 (0.00-0.02) K/uL PT (9.0-12.0) Seconds INR (0.9-1.1) APTT (21.0-31.0) Seconds PTT Ratio Sodium (136-145) mmol/L Potassium (3.5-5.1) mmol/L Chloride (98-107) mmol/L Carbon Dioxide (21-32) mmol/L Anion Gap (3-11) BUN (7-18) mg/dl Creatinine (0.6-1.4) mg/dl Est Cr Clr Drug Dosing ml/min Est GFR ( Amer) ml/min Est GFR (Non-Af Amer) ml/min BUN/Creatinine Ratio (10-20) Glucose (70-99) mg/dl Calcium (8.5-10.1) mg/dl Total Bilirubin (0.2-1) mg/dl AST (15-37) U/L ALT (12-78) U/L Alkaline Phosphatase (45-117) U/L Troponin I (0-0.045) ng/ml NT-Pro-B Natriuret Pep (0-1800) pg/ml Total Protein (6.4-8.2) gm/dl Albumin (3.4-5.0) gm/dl Globulin (2.5-4.0) gm/dl Albumin/Globulin Ratio (0.9-2) Lipase (73-393) U/L COVID-19 Eval Order SARS-CoV-2 (PCR) (Negative) Diagnostic Findings Impressions Chest X-Ray 04/21/21 16:38 XR chest 1V portable CLINICAL HISTORY: Chest Pain COMPARISON STUDY: Chest radiograph March 11, 2021. FINDINGS: Lung volumes are normal. Lungs are clear. There is no pneumothorax or pleural effusion. Moderate cardiomegaly is unchanged. Mediastinal contours are normal. There is no evidence for pulmonary edema. IMPRESSION: No acute cardiopulmonary findings. Cardiomegaly. ACT 112: Negative or not required by law. Electronically signed by: Nitin Oliveira M.D. 04/21/2021 4:[address] ABDOMEN & PELVIS With Contrast: No prior exam for comparison. Multiple loops of small bowel distended up to 2.7-3.0 cm raising the concern for small bowel obstruction. Zone of transition is indeterminate and likely within the mid distal ileum. Areas of small bowel wall thickening such as image 31, series 2. Differential diagnosis therefore includes nonspecific enteritis versus inflammatory bowel disease, correlation with history of Crohn's recommended. Mild bilateral lower lobe atelectasis. Normal cardiac size with coronary artery calcifications. Unremarkable gallbladder and biliary system. Small low-attenuation lesion within the liver measuring 6 mm, too small to characterize and likely benign such as cyst. Normal bilateral adrenal glands. Normal spleen. Normal visualized pancreas. Mild bilateral perinephric stranding. Left-sided renal cysts, largest seen within the lower pole measuring 3.2 cm maximal dimension. Small left-sided renal cyst, largest seen in the mid upper pole measuring 1.2 cm. Remainder bilateral kidneys unremarkable. Unremarkable urinary bladder. Marked enlargement of the prostate gland with indentation and invagination into the posterior urinary bladder, the prostate gland measuring approximately 5 cm in craniocaudal dimension by 4.0 cm in AP dimension by 4.3 cm in transverse dimension. Unremarkable stomach. Normal appendix. The descending colon is decompressed. 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 Atherosclerotic disease of aorta with no aneurysm. Radiologist: Cande Munoz MD Medications Administered Home Medication List Medication Instructions Recorded atorvastatin 40 mg tablet 40 mg PO HS #90 tab 09/26/20 carvedilol 25 mg tablet 25 mg PO BID #180 tab 09/26/20 omeprazole 40 mg PO QAM 10/20/20 sacubitril 97 mg-valsartan 103 mg 1 tab PO BID #180 tab 10/20/20 tablet loperamide 2 mg tablet 1 mg PO DAILY PRN #15 tab 12/02/20 furosemide 40 mg tablet 40 mg PO QAM #90 tab 12/17/20 apixaban 5 mg tablet 5 mg PO BID #180 tab 01/13/21 allopurinol 300 mg tablet 300 mg PO HS #90 tab 03/31/21 [id number] 1 tab PO QAM 04/21/21 [[facility]] multivitamin 1 tab PO QAM 04/21/21 Supervising Physician Co-Signing Physician Notes Attending addendum: I have physically seen this patient, have supervised the medical residents activities, and agree with the H&P unless as otherwise noted. Assessment and Plan: Small bowel obstruction- Probable transition point in the mid to distal ileum NPO Not requiring NG tube at this time, will place if Symptoms progress and not controlled by medications Zosyn 4.5 g IV every 8 hours General surgery has been consulted Acute on chronic HFpEF/atrial fibrillation/CAD- Changing Lasix to IV and follow clinical examination closely Eliquis on hold, and replaced by heparin ip Cardiology consulted as noted Remaining orders and notations as noted Resident Activity Tracking Resident Involvement: Resident Care Provided Care Provided: Adult Hospital Medicine
[2021-04-21] MEDS ORDERED: FUROSEMIDE 40 MG/4 ML VIAL IV STA (23:05)
[2021-04-22] MEDS ORDERED: Heparin IV Adult Wt-Based Standard *NO* Bolus Protocol ONE (00:07)
[2021-04-22] MEDS ORDERED: HEPARIN SODIUM/DEXTROSE 25,000 UNITS/500 ML BAG IV SCH (00:22)
[2021-04-22] MEDS ORDERED: NITROGLYCERIN SL 0.4 MG/TAB TAB SL PRN (01:23)
[2021-04-22] MEDS ORDERED: ONDANSETRON INJ 2 MG/ML 2 ML VIAL IV PRN (01:23)
[2021-04-22] MEDS ORDERED: MoRPHine SULFATE 2 MG/ML CARP IV PRN (01:23)
--- NOTE | 2021-04-22 07:29 | CT Scan Report ---
CT abd pelvis IV con only CLINICAL HISTORY: Pt c/o abd pain COMPARISON STUDY: None. TECHNIQUE: A dose lowering technique was utilized adhering to the principles of ALARA. CT DOSE: 951.99 mGycm FINDINGS: Lower chest: Minimal atelectasis at dependent portions of bilateral lower lobes. Trace pericardial ef fusion is seen.. Partially visualized coronary calcifications. Possible coronary stents. Liver: The contrast-enhanced liver is normal in size, contour, and attenuation. There is no intrahepa tic biliary ductal dilatation. The hepatic veins and portal veins are patent. 0.8 cm hypoattenuating lesion is seen within left lobe of the liver, too small to characterize and statistically most likely represent cyst or hemangioma. Gallbladder: Unremarkable. Spleen: Normal in size and attenuation. Pancreas: Unremarkable. Adrenal glands: Unremarkable. Kidneys: There is symmetric renal cortical enhancement. The kidneys are normal in size without hydron ephrosis.Few hypoattenuating lesions are seen within right and left renal parenchyma. Largest lesion is seen within inferior aspect of the right kidney measuring 2.6 x 3.3 x 2.3 cm in size and shows min imal septation and lobulated contour. No definite soft tissue enhancing component is demonstrated. Pelvic viscera: Urinary bladder is fluid-filled. Prostate gland is mildly enlarged. There is question able slightly enhancing mass with lobulated contour is seen at the inferior aspect of the urinary joselito dder measuring approximately 4.8 x 3.3 cm on axial image. Bowel: Loops of small bowel are within upper limits of normal for size and fluid-filled which could b e seen in diarrheal state, represent enteritis or early small bowel obstruction. No definite transiti on zone is seen.. Appendix shows normal morphology and gas filled. Distal colon is collapsed. Peritoneum: There is no free intraperitoneal air. Small amount of free fluid is seen within lower pel vis. Mild mesenteric edema is demonstrated. Vasculature: Abdominal aorta is normal in caliber with extensive calcifications of its wall. Adenopathy: None. Skeletal structures: Degenerative changes of the spine. IMPRESSION: 1. Multiple fluid-filled loops of small bowel within upper limits of normal for size associated with minimal diffuse mesenteric edema and small amount of free fluid within lower pelvis. Differential di agnosis include diarrheal state, enteritis or early small bowel obstruction however there is not adler sitional zone is seen. Follow-up evaluation with abdominal radiograph is suggested 2. Trace pericardial effusion. 3. Slightly enhancing/hyperattenuating mass at dependent portion of the urinary bladder without obst ruction of collecting system which could represent urinary bladder lesion or extension from the enlar ged prostate gland. Please correlate above-mentioned findings was prior history, urology evaluation a nd results of urinalysis. 4. Atherosclerosis. 5. Multiple renal cysts as detailed above. Attention on follow-up imaging. ACT 112: Positive. There are findings on this exam that require communication between the performing entity and the patient following Patient Test Result Information Act ([place] Act 112) guidelines. The above report was generated using voice recognition software. It may contain grammatical, syntax o r spelling errors. Electronically signed by: Daisha Cooper DO 04/22/2021 7:27 AM
[2021-04-22 08:36] LABS: Hematocrit (blood only) 37.1 % (42-52); Hemoglobin 12.4 g/dL (14.0-18.0); Lymphocytes # (auto) 0.39 K/uL (1.2-3.4); Lymphocytes % (auto) 6.5 %; Mean Corpuscular Hemoglobin 32.2 pg (25-34); Mean Corpuscular Hgb Conc 33.4 g/dL (32-36); Mean Corpuscular Volume 96.4 fL (80-100); Mean Platelet Volume 9.5 fL (7.4-10.4); Monocytes # (auto) 0.08 K/uL (0.11-0.59); Monocytes % (auto) 1.3 %; Neutrophils # (auto) 5.53 K/uL (1.4-6.5); Neutrophils % (auto) 92.2 %; Platelet Count 120 K/uL (130-400); RDW Standard Deviation 49.8 fL (36.4-46.3); Red Blood Count 3.85 M/uL (4.7-6.1)
[2021-04-22 08:59] LABS: Partial Thromboplastin Ratio 4.8
[2021-04-22] MEDS ORDERED: FUROSEMIDE 40 MG/4 ML VIAL IV SCH (09:00)
[2021-04-22] MEDS ORDERED: FUROSEMIDE 20 MG in SYRINGE 0 ML IV SCH (09:00)
[2021-04-22 09:02] LABS: BUN Creatinine Ratio 26.4 (10-20); Calcium 8.9 mg/dl (8.5-10.1); Creatinine Clr Calc Pharmacy 61.3 ml/min; Est GFR (Non-African American) 66.4 ml/min; Magnesium 2.4 mg/dl (1.8-2.4); Phosphorus 3.9 mg/dl (2.5-4.9); Potassium 3.7 mmol/L (3.5-5.1)
[2021-04-22 09:04] LABS: Partial Thromboplastin Time 126.4 Seconds (21.0-31.0)
--- NOTE | 2021-04-22 09:36 | Electrocardiogram Report ---
Test Reason : Blood Pressure : / mmHG Vent. Rate : 087 BPM Atrial Rate : 416 BPM P-R Int : 000 ms QRS Dur : 102 ms QT Int : 390 ms P-R-T Axes : 000 -25 078 degrees QTc Int : 469 ms Atrial fibrillation Abnormal ECG When compared with ECG of 15-SEP-2013 14:20, Atrial fibrillation has replaced Sinus rhythm T wave inversion no longer evident in Inferior leads Nonspecific T wave abnormality now evident in Lateral leads Confirmed by Jack Hebert ([id number]) on 04/22/2021 9:36:31 AM Referred By: REFERRED SELF Confirmed By:Bjorn Hebert
--- NOTE | 2021-04-22 09:39 | Electrocardiogram Report ---
Test Reason : Blood Pressure : / mmHG Vent. Rate : 078 BPM Atrial Rate : 070 BPM P-R Int : 000 ms QRS Dur : 104 ms QT Int : 410 ms P-R-T Axes : 000 -28 001 degrees QTc Int : 467 ms Atrial fibrillation Nonspecific ST abnormality Abnormal ECG When compared with ECG of 21-APR-2021 15:34, (unconfirmed) No significant change was found Confirmed by Jack Hebert ([id number]) on 04/22/2021 9:38:32 AM Referred By: REFERRED SELF Confirmed By:Bjorn Hebert
[2021-04-22 13:19] LABS: Appearance Urine Clear (Clear); Bilirubin Urine Negative (Negative); Blood Urine Negative (Negative); Color Urine Yellow; Glucose Urine UA Negative (Negative); Ketones Urine Trace (Negative); Leukocyte Esterase Urine Trace (Negative); Nitrite Urine Negative (Negative); Protein Urine Negative (Negative); RBC Urine Automated 0-4 /hpf (0-4); Specific Gravity Urine 1.027 (1.000-1.030); Urobilinogen Urine Negative (Negative)
[2021-04-22 13:37] LABS: Bacteria Urine Automated 1+ (Negative)
--- NOTE | 2021-04-22 14:35 | XRay Report ---
XR KUB/Abdomen 1 view CLINICAL HISTORY: concern for sbo COMPARISON STUDY: No previous studies for comparison. Correlation is made with CT of the abdomen per formed on April 21, 2021 FINDINGS: There are multiple gas-filled loops of small bowel which mildly dilated measuring up to 3.9 cm in babar meter which sometimes could be seen in small bowel obstruction. Loops of large bowel are nondilated with moderate stool content. Degenerative changes of the spine are seen. IMPRESSION: 1. Multiple gas-filled and slightly dilated loops of small bowel concerning for developing of small bowel obstruction. Short-term follow-up is suggested. ACT 112: Positive. There are findings on this exam that require communication between the performing entity and the patient following Patient Test Result Information Act ([place] Act 112) guidelines. The above report was generated using voice recognition software. It may contain grammatical, syntax o r spelling errors. Electronically signed by: Daisha Cooper DO 04/22/2021 2:34 PM
[2021-04-22] MEDS ORDERED: allopurinoL 300 MG TAB PO SCH ×2 (16:25→21:00)
[2021-04-22] MEDS ORDERED: SACUBITRIL-VALSARTAN 97-103 MG TAB PO SCH ×2 (16:25→21:00)
[2021-04-22] MEDS ORDERED: ATORVASTATIN 40 MG TAB PO SCH ×2 (16:25→21:00)
[2021-04-22] MEDS ORDERED: carvediloL 25 MG TAB PO SCH ×2 (16:25→21:00)
[2021-04-22] MEDS ORDERED: APIXABAN 5 MG TABLET PO SCH ×2 (16:25→21:00)
--- NOTE | 2021-04-22 18:42 | Communication Note ---
Date of Service: April 22, 2021 H&P Addendum: By CMS guidelines, a determination that the admission or continued stay is not medically necessary has been made by a member of the UR committee and a physician for this hospital stay, therefore a Code 44 will be completed and the Inpatient admission will be changed to outpatient. Alissa Peralta M.D.
--- NOTE | 2021-04-22 20:05 | Billing Data ---
Date of Service April 22, 2021 Coding Level of Care Code 25063 Initial Inpt Care Lvl 3
--- NOTE | 2021-04-22 21:15 | Discharge Summary ---
Date of Service April 22, 2021 Admission HPI Per Admitting Provider Merrill Elder is a 80-year-old male with extensive past medical history of coronary artery disease, recently seen by [facility] for consideration of CABG, as he is continued to be followed with [facility]; who presents for concerns of abdominal pain and distention earlier in the day following eating some peanut butter. Earlier in the day he was going to a , had prior to that some toast with celery and peanut butter and a banana, shortly thereafter he started to notice he was having some discomfort across his abdomen. This is not the first time he has had similar kind of feeling, 9 years ago while at a [facility] football game he had eaten many peanuts has had a similar reaction and ended up in the hospital for a small bowel obstruction at that time. This is happened one other time in the intervening time but only associated with peanuts. Does eat peanut butter on a regular basis and had never had this kind of reaction before. In the ED received Benadryl, Solu-Medrol, Pepcid which alleviated the pain, however given the distention and CT imaging decision for admission was made. Of note he was scheduled to see cardiology Dr. Craig tomorrow, for continued discussions regarding his coronary artery disease following recent visit down to [facility] and evaluation of potential CABG versus coronary artery stenting for LAD lesion. As he is going to be admitted desires to have these conversations inpatient and would like Dr. Craig if he is available to continue his conversations. He is currently not having any chest pain, shortness of breath, palpitations, nausea, vomiting, abdominal pain, changes in bowel movements, lightheadedness, or dizziness. Admission Exam Per Admitting Provider Constitutional: WD/WN, vitals as above Eyes: PERRL, conjunctivae normal, anicteric sclerae Respiratory: normal respiratory effort, lungs clear to auscultation Auscultation: no crackles, no rales, no rhonchi and no wheezes Cardiovascular: Rate/Rhythm: + irregularly irregular Heart Sounds: no gallop, no murmur and no cardiac rub Vessels: normal peripheral pulses; no JVD Extremities: no edema Gastrointestinal (Abdomen): Inspection/Auscultation: normal bowel sounds; abdomen not distended Percussion/Palpation: abdomen soft and normal to percussion; abdomen nontender and no guarding Musculoskeletal: no cyanosis or clubbing, extremities motor strength 5/5 Skin: no rashes, warm and dry Neurologic: PERRL, EOMI, accommodation nl, no face palsy, no dysarthria CN's II-XI intact bilaterally and moves all extremities Psychiatric: Orientation: alert and oriented x 3 Principal Diagnosis Partial small bowel obstruction Discharge Exam Constitutional: well-appearing, no acute distress CV: regular rhythm, no murmur appreciated, extremities well-perfused Resp: CTABL, no wheezes/rales/rhonchi appreciated, no increased work of breathing GI: soft, nondistended, nontender, BS normoactive Neuro: AOx4, no focal neurological deficits appreciated Discharge Data Allergies Allergy/AdvReac Type Severity Reaction Status Date / Time lisinopril AdvReac Mild Cough. Verified 04/21/21 20:31 Consultations 04/21/21 22:08 ED Decision to Admit Stat 04/22/21 01:23 Consult Cardiology Routine Ordered Studies 04/21/21 19:37 CT abd pelvis IV con only Urgent Hospital Course (1) Small bowel obstruction: Small bowel obstruction CT abdomen/pelvis performed in the ED was concerning for possible developing small bowel obstruction after eating peanut butter. Patient was made NPO. Patient vomited once in the ED and felt significantly better afterwards. On jose alfredo day after admission, patient's abdominal pain and distension resolved spontaneously. Patient's diet was cautiously advanced. Patient was able to tolerate his regular diet without any recurrence of symptoms, and patient was felt able to be safely discharged home. Patient was discharged on the day after admission in stable condition. Patient was hemodynamically stable for the entirety of his hospitalization. Peanut antibody tests were ordered to evaluate for possible allergy; these tests were pending upon discharge. Close PCP follow- up was recommended. Ajvpt-sm-akkwzeh systolic CHF Patient's BNP was elevated on admission. Patient was placed on IV diuretics in place of his home diuretic regimen. Case was discussed with cardiology, who felt it was safe to discharge patient home in light of patient's upcoming cardiology appointment. No medication changes were made prior to discharge. -Continue converted home diuretic via IV at this time Atrial fibrillation Patient was noted in the ED to be in atrial fibrillation. Patient's eliquis was held, and patient was started on a heparin drip while NPO. Once discharge was deemed safe, heparin was discontinued. Patient's eliquis was restarted on discharge. Bladder mass A urinary bladder mass without obstruction was seen on CT, which radiology felt represented a urinary bladder lesion vs extension from patient's enlarged prostate gland. This was felt to be non-contributory to patient's presenting symptoms. Outpatient follow-up was recommended. Renal cysts Multiple renal cysts were seen on CT imaging, which were not felt to be contributory to patient's presenting symptoms. Outpatient follow-up was recommended. (2) Atrial fibrillation, permanent: (3) Chronic systolic CHF (congestive heart failure): (4) Coronary artery disease: (5) Hyperlipidemia: Total Time Total Time Spent Total Time Spent (In Minutes): 30 mins Discharge Plan Discharge Items Patient Disposition: Home - Self-Care Reason For Visit: CHF, SBO Discharge Diagnosis: Food Reaction vs Resolved ileus Activity: Resume your previous activity Non-emergency contact: Primary Care Provider and Shuttle Repairer Call non-emergency contact if: you have any medication questions, your symptoms worsen and your pain is not controlled Follow-up/Referrals: Hu Dorsey, [Primary Care Provider] - Diet: Heart Healthy Add Attending Provider Instructions: You are seen in the hospital for concern of bowel obstruction versus a food reaction after eating peanuts. Her symptoms improved during hospitalization, and he did not require aggressive interventions. You have not had medication changes made. You received your evening dose of apixaban, carvedilol, atorvastatin, and sacubitril/valsartan the evening of discharge, you can resume these as normal the morning of 04/23. Your symptoms had improved by time of discharge. Have labs pending to test for evidence of peanut allergy/antibodies. The results of these tests may take a week to come back, and will be forwarded to your primary care physician. Please avoid eating peanuts and peanut-containing products in the future, and until the results of these tests are discussed with you by your primary care physician. You had had a cardiology evaluation prior to admission to the hospital at [facility], and are pending additional follow-up appointments for management of chronic cardiac disease. You did not have cardiac related symptoms at time of admission, blood markers of heart damage were negative during admission, and your EKG did not show any new changes in your heart rhythm. Your case was discussed with cardiology, and it was recommended that you continue your previously scheduled follow-up appointments with your outpatient cardiologists. If you develop any new or worsening symptoms, as note d below, please contact your maintenance worker house trailer or primary care provider at the numbers below, or call 911 for transport to an evaluation in the emergency room if you are very concerned. You were found to have an abnormality on the bladder during your CT-scan. This will require additional outpatient followup, and may require additional imaging or referral to Urology to further evaluation. Please discuss a repeat bladder ultrasound vs Urology referral with your PCP Dr. Dorsey at your followup visit. A followup appointment is being scheduled for you with your PCP Hu Dorsey. You should be seen seen within 1 week. You should receive a call to confirm this appointment. If you do not receive a call within 48 hours to confirm this appointment, or need to change this appointment, please call the provider's office at [phone]. If you develop any new or worsening symptoms including fever, chills, sweats, chest pain, chest pressure, difficulty breathing, uncontrolled nausea/vomiting, rash, wheezing, passing out or nearly passing out, bleeding, black/bloody bowel movements, or other new or concerning symptoms please call your primary care physician at [phone], or call 911 for re-evaluation in the emergency department if you are very concerned. Pending Studies at Discharge: No Stand-Alone Forms: My [facility] [employer], Smoking Cessation Medications and DC Order Prescriptions: Continued atorvastatin 40 mg tablet 40 mg PO HS Qty: 90 RF: 3 carvedilol 25 mg tablet 25 mg PO BID Qty: 180 RF: 3 Entresto 97-103 mg tablet 1 tab PO BID Qty: 180 RF: 3 furosemide 40 mg tablet 40 mg PO QAM Qty: 90 RF: 3 Eliquis 5 mg tablet 5 mg PO BID Qty: 180 RF: 3 allopurinol 300 mg tablet 300 mg PO HS Qty: 90 RF: 3 loperamide [Anti-Diarrheal (loperamide)] 2 mg tablet 1 mg PO DAILY PRN (Reason: loose stool) Qty: 15 RF: 2 omeprazole 40 mg capsule,delayed release(DR/EC) 40 mg PO QAM RF: 0 multivitamin Tablet 1 tab PO QAM RF: 0 Fibras [place] 40-10-5-3.3 mg Tablet 1 tab PO QAM RF: 0 Discharge Orders: Discharge Order (Routine); Ordered 04/22/21 Ordered By: Amadou Elliott Admission Data Admit Date/Time: 04/21/21 23:38 Attending Provider: Jorgito Pruitt Admit Provider: Bandar Briggs Primary Care Provider: Hu Dorsey Other Providers: Zafar Abad ; Tee Craig Other Interventions: Discharge Summary Assessment (RN) Last Done: 04/22/21 16:49 Supervising Physician Co-Signing Physician Notes I also saw the patient - once in the early AM and once in the mid afternoon - and confirmed quintero portions of the history and exam. I also discussed the case with cardiology. I agree with the impression and plan as noted in the resident documentation. The patient describes an onset of cramping like abdominal pain subsequent to eating some "old" peanut butter. He recalls having similar reactions to peanuts - although not consistently - in the past, but has never been tested nor diagnosed with a food allergy. Separate from his presenting complaint, patient is also in the midst of a cardiovascular work up for presumed ischemic cardiomyopathy; he had a recent cardiac catheterization although not deemed to be a candidate for CABG nor percutaneous intervention. He actually had a follow up appointment with cardiology today (as an outpatient). He denies chest pain or shortness of breath. Exam Afebrile and hemodynamically stable. CV irregularly irregular, consistent with rate controlled a-fib Lungs are clear. Abd is soft and non tender. (+) BS. Data Troponin negative x 2. CBC unremarkable. Electrolytes within normal. CT scan demonstrates slight abnormality in bladder, wall thickening versus prostate effect Impression and Plan Abdominal pain, nausea and vomiting, SBO vs enteritis vs food allergy Symptoms were resolved by early this morning with benign exam and flatus He had a bowel movement late morning, and tolerated advancing diet thru the day Late afternoon, tolerated full diet without emesis or pain. Will check peanut antibodies; avoid peanuts for time being Discussed s/s to return to hospital. Atrial Fib CAD CHF, chronic without exacerbation Elevated BNP but clear lung exam, clear CXR, no dyspnea, and no oxygen demand Suspect may be chronic given his cardiomyopathy Outpatient follow up with cardiology Incidental bladder finding on CT Outpatient follow up. Resident Activity Tracking Resident Involvement: Resident Care Provided Care Provided: Adult [facility]
[2021-04-23 14:51] LABS: Peanut IgE <0.10 kU/L
== END 2021-04-22 18:14 | disposition home or self-care (01) | DRG 389 ==
LOC: ED 15:21 → 2S 23:38 → INTOOBSV 23:38 → SUATTDRO 23:38 → 2S 04-22 00:54

== ENCOUNTER 2022-01-28 07:14 | Observation (INO) ==
[~2022-01-28 07:14] MED LIST changes: -ALLO300T2 PO; -AMLO2.5T PO; -ASPI81TA82 PO; +BUPIVACAINE 0.25% 30 ML VIAL ONE; -CARV25TA2 PO; -FURO40TA3 PO; +LIDOCAINE 1% LOCAL 20 ML VIAL ONE; -LOSA1TAB38 PO; -MISCTAB88 PO; -MULT-106 PO; -PRED-301 PO; -SILD100T PO; +VANCOMYCIN HCL 1000MG/20ML VIAL ONE; +WATER, STERILE FOR INJ 10 ML VIAL ONE
[2022-01-28] MEDS ORDERED: MIDAZOLAM HCL 5 MG/ML 1 ML VIAL ONE (07:50)
[2022-01-28] MEDS ORDERED: ceFAZolin 330 MG/ML 1 GM VIAL ONE (07:50)
[2022-01-28] MEDS ORDERED: fentaNYL citrate 100 MCG/2 ML VIAL ONE (07:50)
--- NOTE | 2022-01-28 08:03 | Pre Anesthesia Assessment ---
Date of Service January 28, 2022 Pre Sedation Assessment Vital Signs Temp Pulse Resp BP Pulse Ox 01/28/22 07:32 36.8 C 56 L 20 138/87 97 Cardiovascular + irregularly irregular Respiratory + respiratory effort normal Pre-Sedation Airway Assessment Smoking Status: Never smoker Hx Sleep Apnea: Yes Short, Thick Neck: No Thyromental Distance: > or= 3.5 Finger Breadths Oral Cavity: + Capped Teeth Mallampati Class: IV ASA: ASA3 NPO Status Date of Last Intake of Fluids: 01/28/22 Time of Last Intake of Fluids: 06:00 Date of Last Intake of Solid Food: 01/27/22 Time of Last Intake of Solid Foods: 18:00 Procedure Planning Contraindications for Sedation: none Current Medications Reviewed: Yes Notes The planned sedation has been discussed with the patient. Informed Consent was obtained. I have identified the patient, determined the appropriateness of sedation and have assessed the patient immediately prior to the procedure. All medicine(s) and interventions are by my order.
--- NOTE | 2022-01-28 08:06 | History & Physical Report ---
Date of Service January 28, 2022 Assessment & Plan (1) Atrial fibrillation, permanent: (2) Dilated cardiomyopathy: Plan: Will plan single chamber ICD History of Present Illness Chief Complaint: CHF Primary Care Provider: Cathleen Barillas Patient with a history of both ischemic and non-ischemic CM. Well-compensated. Continues to have severely reduced LV function. Allergies Allergy/AdvReac Type Severity Reaction Status Date / Time lisinopril AdvReac Mild Cough. Verified 01/20/22 09:37 Home Medications Medication Instructions Recorded Confirmed Type allopurinol 300 mg tablet 300 mg PO HS #90 tab 03/31/21 01/28/22 Rx cartilage 40 mg-collagen II 10 1 tab PO QAM 04/21/21 01/28/22 History mg-boron 5 mg-hyaluronate 3.3 mg tablet ([employer]) multivitamin 1 tab PO QAM 04/21/21 01/28/22 History sildenafil 100 mg tablet 100 mg PO DAILY PRN 04/28/21 01/28/22 History loperamide 2 mg tablet 1 mg PO DAILY PRN #30 tab 05/04/21 01/28/22 Rx (Anti-Diarrheal (loperamide)) BiPap Machine See Rx Instructions .ROUTE 08/13/21 01/28/22 Rx .COMPLEX #1 ea clopidogrel 75 mg tablet (Plavix) 75 mg PO DAILY #90 tab 08/30/21 01/28/22 Rx atorvastatin 40 mg tablet 40 mg PO HS #90 tab 09/30/21 01/28/22 Rx carvedilol 25 mg tablet 25 mg PO BID #180 tab 09/30/21 01/28/22 Rx furosemide 40 mg tablet 40 mg PO QAM #90 tab 09/30/21 01/28/22 Rx sacubitril 97 mg-valsartan 103 mg 1 tab PO BID #180 tab 10/08/21 01/28/22 Rx tablet (Entresto) omeprazole 40 mg capsule,delayed 40 mg PO QAM #90 cap 10/19/21 01/28/22 Rx release CPAP Supplies See Rx Instructions .ROUTE 01/20/22 01/28/22 Rx .COMPLEX #1 ea apixaban 5 mg tablet (Eliquis) 5 mg PO BID #180 tab 01/25/22 01/28/22 Rx Past Med/Surg History Medical History (Updated 10/26/21 @ 00:07 by Bibi Olsen) Atrial fibrillation, permanent on eliquis--follows with Dr. 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--no stents History of colonoscopy with polypectomy History of esophagogastroduodenoscopy (EGD) History of intestinal surgery occured at age 3 days old, pt unsure of details. Denies any GI abnormalities or complications. History of repair of rotator cuff left S/P coronary artery stent placement Stented coronary artery PCI of ostial LM into proximal LAD with ANGELA. POBA ostium of LCx Family History Grandfather Myocardial infarction Daughter Pancreatic cancer Hypothyroidism Father Stroke Other Hypertension No family history of adverse response to anesthesia Denies family history of Colon cancer Ovarian cancer Prostate cancer Breast cancer Social History Smoking Status: Never smoker Second Hand Exposure: No; Hx Alcohol Use: Yes Alcohol type: wine Alcohol Intake Frequency: 2-3 x/Week Alcohol Intake Frequency Comment: 1 times weekly Hx Substance Use: No Preferred Language: Nigerian Communication Ability: Effective Visual Impairment: Diminished Hearing Ability: Normal Inspector Balance Bridge Required: No Beliefs That Will Affect Care: None marital status: Current Living Situation: Spouse current occupational status: retired current occupation: Retired Other Information That Helps Us Care for You: No Feels Safe at Home: Yes Safety Concerns: Feels Safe At This Time Childhood Exposure to Second-Hand Smoke: Yes Diet Comment: Elana's type diet from time to time caffeine: No Dental Care, Regularly: Yes Physical Activity Frequency: 1-2 Times per Week Physical Activity Frequency Comment: treadmill,weights Seatbelt Use: always Sunscreen Use: Yes Do you think of yourself as: straight/heterosexual Assistive Devices: CPAP Review of Systems Review of Systems: per HPI Physical Exam Physical Exam: Alert.Answers questions appropriately Normal respiratory effort Irregular rhythm No edema Results & Data Results & Data ([facility]) Vital Signs (Past 12 Hours) Vital Signs Temp Pulse Resp BP Pulse Ox 01/28/22 07:32 36.8 C 56 L 20 138/87 97
[2022-01-28] MEDS ORDERED: oxyCODONE HCL IR 5 MG TAB (IMMEDIATE RELEASE) PO PRN (09:13)
--- NOTE | 2022-01-28 09:13 | Post Anesthesia Assessment ---
Date of Service January 28, 2022 Post Sedation Assessment Vital Signs Temp Pulse Resp BP Pulse Ox 01/28/22 07:32 36.8 C 56 L 20 138/87 97 Recovery Score Activity: Moves 4 extremities Respiration: Deep Breath/Cough Circulation: +/-20% PreAnes Value Consciousness: Fully Awake Oxygen Saturation: > 92% On Room Air Discharge Sedation Level of Care: Fast Track Phase II Post Sedation Plan On clinical assessment, the patient appears to have tolerated the sedation without complications. Patient is recovering as anticipated. Patient will continue to be monitored by nursing and may be discharged when sedation discharge criteria are met per below protocol. Upon Completions of procedure up to 15 minutes continue every 5 minute vital signs and the P.A.R. score; then discharge to a Phase I or Fast Track to Phase II per the following guidelines: * Discharge Patient to appropriate Phase II area if PAR is 8 or greater or return to pre- procedure baseline. The post - procedure orders will be as directed. * If PAR score is less than 8 or not return to pre-procedure baseline then patient will follow Phase I monitoring till PAR is reached for Phase II. The Phase I may be done in procedure room or may call to secure a Phase I area. * If naloxone or flumazenil are used for reversal, hold in Phase I for continued monitoring from when last reversal dose was given for a minimum of 60 minutes or longer pending the nurse and/or physician discretion of patient condition before discharge to Phase II. Please call the Sedation Physician to re-evaluate and complete post-note for discharge to Phase II area. Do NOT discharge from procedure sedation or Phase 1 until post- sedation evaluation note is complete by procedure /sedation MD Sedation Discharge Instructions to be given to the patient at discharge to home.
--- NOTE | 2022-01-28 09:13 | Electrophysiology Report ---
Date of Service January 28, 2022 Electrophysiology Procedure Electrophysiology Procedure Report Procedure performed: Implantation of single-chamber ICD Staff vocational trainer: Jack Hebert MD Indication: The patient is an 81-year-old gentleman with a history of a nonischemic cardiomyopathy. Despite guideline directed medical therapy continues to have reduced LV systolic function with an EF less than 35%. He has [place] Heart Association class II-III symptoms. He has not had re vascularization in the past 90 days nor suffered a myocardial infarction in the past 40 days. He has an anticipated longevity greater than 1 year. As such she was felt to be a good candidate for MARTINA ICD as primary prevention against sudden cardiac . He is in permanent atrial fibrillation and the QRS duration is less than 120 ms. No indication for DIELECTRIC EMBOSSING MACHINE OPERATOR. Procedure in detail: The patient was informed of the risks benefits and alternatives to the intended procedure and she wished to proceed. He was taken to the electrophysiology suite in a fasting state. A preoperative antibiotic had been administered. The patient was monitored electrocardiographically throughout today's procedure and conscious sedation was administered per protocol. The left upper pectoral area is prepped and draped in usual sterile fashion. This area was anesthetized using subcutaneous administration of a xylocaine solution. An incision was made at this site and carried down to the prepectoralis fascia using sharp dissection. Electrocautery was also employed for dissection as well as for hemostasis. A device pocket was fashioned tissues above the pectoralis muscle. Subsequent to this maneuver the left axillary vein was accessed using modified Seldinger technique. A sheath was placed over guidewire at the site and use facilitate passage of the ICD lead to the right ventricular apex under fluoroscopic guidance. Adequate sensing and threshold parameters were obtained prior to active-fixation of lead to the endocardial surface. The proximal portion of lead was then sutured the prepectoralis fascia using nonabsorbable suture. The device pocket was irrigated with antibiotic solution. The lead was then attached to the device. The device and leads were then placed in the pocket and pocket was closed in 3 layers of absorbable suture. Steri-Strips and sterile dressing were applied. The device was tested noninvasively prior to conclusion the procedure. The patient tolerated procedure well there no immediate complications. Equipment used: New pulse generator: Security Nurse [employer]. Model number: [id number] serial number [id number] Right ventricular lead: Security Nurse [email or web address]. Model number: 6935M serial number [id number] Measured data: Right ventricular lead: R waves measured 15.1 mV. Pacing threshold was 0.75 V at 0.4 ms with a pacing impedance of 399 ohms Impression: Successful implantation of single-chamber ICD MNPG Electrophysiology codes ICD Procedure 1: ICD: 99493 Insert single or dual ICD system PG Moderate Sedation Codes Moderate Sedation Codes Procedure 1: Sedation/Anesthesia: 80651 Mod Sedation by the same physician;Init15 Min Child Age 5 & Up Procedure 2: Sedation/Anesthesia: 08727 Mod Sedation by the same physician; Ea [id number] Minutes
[2022-01-28] MEDS ORDERED: NON-FORMULARY MEDICATION (Bipap Machine misc) SCH (12:00)
[2022-01-28] MEDS ORDERED: NON-FORMULARY MEDICATION (Cpap Supplies misc) SCH (12:00)
[2022-01-28] MEDS: CLOPIDOGREL BISULFATE 75 MG TAB PO SCH (13:25)
[2022-01-28] MEDS: carvediloL 25 MG TAB PO SCH ×2 (13:25→20:02)
[2022-01-28] MEDS: FUROSEMIDE 40 MG TAB PO SCH (13:25)
[2022-01-28] MEDS: PANTOprazole 40 MG TAB PO SCH (13:26)
[2022-01-28] MEDS: ceFAZolin 2000MG 2,000 MG/15 ML SYR IV SCH (16:16)
[2022-01-28] MEDS: ACETAMINOPHEN 325 MG TAB PO PRN (20:01)
[2022-01-28] MEDS: VALSARTAN/SACUBITRIL 103/97MG TAB PO SCH (20:03)
[2022-01-28] MEDS ORDERED: ATORVASTATIN 40 MG TAB PO SCH (21:00)
[2022-01-28] MEDS ORDERED: allopurinoL 300 MG TAB PO SCH (21:00)
[2022-01-29] MEDS: ceFAZolin 2000MG 2,000 MG/15 ML SYR IV SCH (00:20)
[2022-01-29] MEDS: ACETAMINOPHEN 325 MG TAB PO PRN (04:53)
[2022-01-29] MEDS: CLOPIDOGREL BISULFATE 75 MG TAB PO SCH (08:39)
[2022-01-29] MEDS: carvediloL 25 MG TAB PO SCH (08:39)
[2022-01-29] MEDS: PANTOprazole 40 MG TAB PO SCH (08:39)
[2022-01-29] MEDS: FUROSEMIDE 40 MG TAB PO SCH (08:39)
[2022-01-29] MEDS: VALSARTAN/SACUBITRIL 103/97MG TAB PO SCH (08:40)
--- NOTE | 2022-01-29 09:09 | XRay Report ---
XR chest 2V PA/lateral CLINICAL HISTORY: Status post pacer placement. Evaluate for pneumothorax.. COMPARISON STUDY: 04/21/2021 TECHNIQUE: 2 views of the chest FINDINGS: Frontal and lateral radiographs of the chest demonstrate the heart size to be mildly enlarged with in terval placement of a single lead cardiac pacer. There is no evidence for pneumothorax. The lungs are clear of alveolar opacities. There is no evidence for effusion bilaterally. There is no evidence for vascular congestion. There is no acute osseous pathology. IMPRESSION: 1. No acute cardiopulmonary disease. 2. Status post pacer placement with no evidence for pneumothorax. ACT 112: Negative or not required by law. Electronically signed by: Chiki Yang M.D. 01/29/2022 9:08 AM
--- NOTE | 2022-01-29 10:18 | Discharge Summary ---
Date of Service January 29, 2022 Admission HPI Per Admitting Provider Patient with a history of both ischemic and non-ischemic CM. Well-compensated. Continues to have severely reduced LV function. Principal Diagnosis Cardiomyopathy Discharge Exam evaluation of the device implant site did not reveal any evidence of hematoma. Minimal ecchymosis. No active bleeding. No erythema. Discharge Data Allergies Allergy/AdvReac Type Severity Reaction Status Date / Time lisinopril AdvReac Mild Cough. Verified 01/20/22 09:37 Procedures Performed Operation Date: 01/28/22 08:00 Actual Procedures p ICD Insertion Single or Dual - Jack Hebert MD Ordered Studies 01/28/22 07:57 CL Cath Imgs for PACS use only Stat Hospital Course (1) Dilated cardiomyopathy: On the day of admission the patient underwent implantation of a single- chamber Medtronic ICD. The patient was uncomplicated. The following morning device interrogation revealed normal lead function. Chest x-ray demonstrated stable lead position without pneumothorax. the patient was feeling well and ambulatory. Total Time Total Time Spent Total Time Spent (In Minutes): 20 Discharge Plan Discharge Items Patient Disposition: Home - Self-Care Reason For Visit: Cardiomyopathy Discharge Diagnosis: cardiomyopathy Activity: Per Instructions section Activity Comment: No lifting left arm above shoulder or behind neck for 6 weeks Lifting: No more than 10 pounds Bathing: Keep incision dry Bathing Comment: Keep wound dry and steri-strips intact until f/u next week Driving/Machine Use: Resume 1 day after discharge Non-emergency contact: Contract Loader Call non-emergency contact if: you have any medication questions, your pain is worsening, you have a fever, your wound has increased redness and your wound has increased drainage Follow-up/Referrals: Cathleen Barillas [Primary Care Provider] - 02/05/22 12:50 pm (Please follow up with Dr. Barillas on Tuesday02/05/22 at 12:50 pm. Please arrive to the office at 12:35 pm for your appointment. If you are unable to keep this appointment, please call the office to reschedule at [phone].) Diet: Heart Healthy Addtl Attending Provider Instructions: May remove outer bulky dressing in AM Resume Eliquis on 01/31 (Tuesday) Addtl Head Start Teacher Provider Instructions: F/U for a wound check at [address] TuesdayFebruary 02 at 2pm No eliquis until Tuesday Pending Studies at Discharge: No Stand-Alone Forms: My [facility], Smoking Cessation Medications and DC Order Prescriptions: Continued allopurinol 300 mg tablet 300 mg PO HS Qty: 90 RF: 3 loperamide [Anti-Diarrheal (loperamide)] 2 mg tablet 1 mg PO DAILY PRN (Reason: loose stool) Qty: 30 RF: 5 clopidogrel [Plavix] 75 mg tablet 75 mg PO DAILY Qty: 90 RF: 3 furosemide 40 mg tablet 40 mg PO QAM Qty: 90 RF: 3 atorvastatin 40 mg tablet 40 mg PO HS Qty: 90 RF: 3 carvedilol 25 mg tablet 25 mg PO BID Qty: 180 RF: 3 Entresto 97-103 mg tablet 1 tab PO BID Qty: 180 RF: 3 omeprazole 40 mg capsule,delayed release(DR/EC) 40 mg PO QAM Qty: 90 RF: 3 Eliquis 5 mg tablet 5 mg PO BID Qty: 180 RF: 3 sildenafil 100 mg tablet 100 mg PO DAILY PRN (Reason: as directed) RF: 0 BiPap Machine Misc See Rx Instructions .ROUTE .COMPLEX Qty: 1 RF: 0 CPAP Supplies Misc See Rx Instructions .ROUTE .COMPLEX Qty: 1 RF: 0 multivitamin Tablet 1 tab PO QAM RF: 0 Joint Wapi 40-10-5-3.3 mg Tablet 1 tab PO QAM RF: 0 Discharge Orders: Discharge Order (Routine); Ordered 01/29/22 Ordered By: Jack Perkins/Other Patient Handouts: Eating Heart-Healthy Foods Admission Data Admit Date/Time: 01/28/22 11:50 Attending Provider: Jack Hebert Admit Provider: Jack Hebert Primary Care Provider: Cathleen Barillas Other Interventions: Discharge Summary Assessment (RN) Last Done: 01/29/22 10:45 Coding Level of Care Code 11647 OBS Care - Discharge Diagnoses Dilated cardiomyopathy I42.0
== END 2022-01-29 11:34 | disposition home or self-care (01) ==
LOC: EP 07:14 → 2S 07:14
PROC: EPB.ICD (2022-01-28 08:00)

== ENCOUNTER 2025-09-10 11:00 | Observation (INO) ==
--- NOTE | 2025-09-10 11:52 | Emergency Department Note ---
Impression & Plan Abscess of scrotum, Chronic anticoagulation ED Provider Note CHIEF COMPLAINT: Scrotal pain and bleeding HISTORY OF PRESENT ILLNESS: This 85-year-old male patient presents to the emergency department via private vehicle accompanied by for evaluation of scrotal pain and bleeding. The patient fell about 2 weeks ago. He was seen here in the emergency department and had negative imaging. About a week later, he presented to the emergency department due to scrotal pain. He had an ultra sound completed which was concerning for an abscess, though clinically appeared more consistent with hematoma. The patient was given supportive care measures and advised to follow-up with urology. Since that time, he has developed some bleeding from the scrotum. He also reports a foul smell and worsening pain. He does state that the pressure seems to be relieved since the bleeding and discharge has started. The patient denies any abdominal pain. No fever or chills. No systemic symptoms. He called urology but was unable to get an appointment until later in the month. Patient rates his pain 5/10. He is on Eliquis and aspirin. His last dose was last night. Did not take these medications this morning. History provided by: Patient and , chart review REVIEW OF SYSTEMS: A 10 system review of systems was performed with positives and pertinent negatives listed in the history of present illness. All other systems were reviewed and are negative. ALLERGIES: Lisinopril PHYSICAL EXAM: VITALS: Vitals are noted on the nurse's note and reviewed by myself. GENERAL: This is an 85-year-old male, in no acute distress, nondiaphoretic, well-developed well-nourished. SKIN: The skin was without rashes, erythema, edema, or bruising. There is no tenting of the skin. Capillary refill less than 2 seconds. HEAD: Normocephalic atraumatic. EYES: Conjunctivae without injection, sclerae without icterus. MOUTH: Mucous membranes moist. NECK: Supple without nuchal rigidity. No lymphadenopathy. Cervical spine is nontender. No JVD. HEART: Regular rate and rhythm without murmurs gallops or rubs. LUNGS: Clear to auscultation bilaterally without wheezes, rales or rhonchi. No retractions or accessory muscle use. ABDOMEN: Positive bowel sounds x 4. Soft, nontender, without masses or organomegaly. No guarding or rebound tenderness. : Palpable hematoma with tenderness in the left hemiscrotum. There is active bleeding and purulent discharge. MUSCULOSKELETAL: No muscle atrophy, erythema, or edema noted. Full range of motion without joint tenderness in all extremities. No tenderness to palpation. Normal gait. Strength 5/5 throughout. NEURO: Patient was alert and oriented to person place and time. No focal neurological deficits. EMERGENCY DEPARTMENT COURSE: The patient was evaluated as above. The patient does appear to have a scrotal abscess. It is bleeding and draining purulent discharge. I contacted urology and spoke with Yvan Ellis PA-C and requested they evaluate the patient at the bedside. They did agree. Please see urology dictation regarding this consultation. The patient will go to the OR. Urology did request the patient be admitted to the hospitalist service. IV access was obtained and labs were drawn. I discussed the case with SEEMA Poe with [facility] hospitalist. Please see hospitalist dictation regarding admission. Case was discussed with the attending physician. I attest that I have personally reviewed the patient medication list. I attest that I have reviewed the patient's blood pressure and it was found to be normal GCS: 15 In the evaluation and treatment of this patient the following differential diagn oses were entertained: Abscess, hematoma, Gautam's gangrene, cellulitis, malignancy, among others The chart was completed utilizing [employer] Speech voice recognition software. Grammatical errors, random word insertions, pronoun errors, and incomplete sentences are an occasional consequence of this system due to software limitations, ambient noise, and hardware issues. Any formal questions or con cerns about the content, text, or information contained within the body of this dictation should be directly addressed to the provider for clarification. Past Med/Surg History Problem List (Updated 09/10/25 @ 12:34 by Ita Perla PA-C) Chronic anticoagulation (Acute) Abscess of scrotum (Acute) Infected hematoma Scrotal abscess Acute pain in scrotum (Acute) Hematoma of scrotum (Acute) Finger fracture (Acute) Contusion of face (Acute) Fall (Acute) Fecal incontinence Left hydrocele Esophageal dysphagia Testicular swelling, left Heart failure with improved ejection fraction (HFimpEF) Urinary frequency Hematuria Heart failure with reduced ejection fraction Prostate asymmetry Presence of single chamber implantable cardioverter-defibrillator (ICD) S/P coronary artery stent placement BPH with obstruction/lower urinary tract symptoms SBO (small bowel obstruction) (Acute) Abdominal pain (Acute) Osteopenia Back pain Plantar wart Anemia Chronic diarrhea Atrial fibrillation, permanent on eliquis--follows with Dr. Craig Bowel habit changes Chronic anticoagulation eliquis bid Chronic systolic CHF (congestive heart failure) Dilated cardiomyopathy Obstructive sleep apnea (Chronic) does not use CPAP as ordered Hyperlipidemia (Chronic) Coronary artery disease (Chronic) Gastroesophageal reflux disease (Chronic) EGD (07/25) showed benign-appearing esophageal stenosis. This was dilated. Esophageal mucosal demonstrated gross and microscopic features of intestinal metaplasia consistent with Robertson's esophagus, negative for dysplasia in carcinoma. Repeat EGD q3 years. On chronic acid suppression with PPI Gout On allopurinol Robertson's esophagus (Chronic) Hypertension (Chronic) Medical History On anticoagulant therapy Arthritis BPH (benign prostatic hyperplasia) GERD (gastroesophageal reflux disease) Barretts esophagus CHF (congestive heart failure) Hx of gout Atrial fibrillation followed by Dr. Craig ICD (implantable cardioverter-defibrillator) in place medronic device, implanted 2022>gets checked every 6 months Pacemaker medtronic, implanted 2022>last checked "gets done every 6 months" Cardiomyopathy Hypertension Hyperlipidemia Sleep apnea cpap Esophageal stricture History of basal cell carcinoma Osteoarthritis Surgical History History of esophagogastroduodenoscopy (EGD) History of colonoscopy History of tooth extraction H/O non-cataract eye surgery left "high pressures' Stented coronary artery PCI of ostial LM into proximal LAD with ANGELA. POBA ostium of LCx>2020 at [facility] History of bilateral cataract extraction History of colonoscopy with polypectomy History of esophagogastroduodenoscopy (EGD) History of intestinal surgery occured at age 3 days old, pt unsure of details. Denies any GI abnormalities or complications. History of repair of rotator cuff right History of cardiac cath 2010 @ [facility]--no stents Family History Grandfather Myocardial infarction Daughter Pancreatic cancer Hypothyroidism Father Stroke Other Hypertension No family history of adverse response to anesthesia Denies family history of Colon cancer Ovarian cancer Prostate cancer Breast cancer Social History Smoking Status: Never smoker Second Hand Exposure: Yes (as a child); Do You Dip or Chew Tobacco: No; Hx Alcohol Use: Yes Alcohol type: beer and wine Alcohol Intake Frequency: 2-3 x/Week Alcohol Intake Frequency Comment: 1 times weekly Hx Substance Use: No Preferred Language: Tamazight Communication Ability: Effective Visual Impairment: Diminished Hearing Ability: Normal Od Grinder Operator Required: No Beliefs That Will Affect Care: None marital status: Current Living Situation: Spouse current occupational status: retired current occupation: Retired Feels Safe at Home: Yes Childhood Exposure to Second-Hand Smoke: Yes Diet: low salt Diet Comment: Elana's type diet from time to time caffeine: No Dental Care, Regularly: Yes Physical Activity Frequency: 1-2 Times per Week Physical Activity Frequency Comment: treadmill,weights Seatbelt Use: always Sunscreen Use: Yes Do you think of yourself as: straight/heterosexual Assistive Devices: CPAP and Glasses Allergies Allergies Allergy/AdvReac Type Severity Reaction Status Date / Time lisinopril AdvReac Mild Cough. Verified 08/23/25 14:05 Home Meds Home Medications Medication Instructions Recorded Confirmed cartilage 40 mg-collagen II 10 1 tab PO QAM 04/21/21 08/23/25 mg-boron 5 mg-hyaluronate 3.3 mg tablet ([employer]) multivitamin 1 tab PO QAM 04/21/21 08/23/25 aspirin 81 mg tablet,delayed 81 mg PO QAM 04/22/22 08/23/25 release empagliflozin 10 mg tablet 10 mg PO QAM 03/11/25 08/23/25 (Jardiance) latanoprost 0.005 % eye drops 1 drp OPL HS 03/11/25 08/23/25 pantoprazole 40 mg tablet,delayed 40 mg PO DAILY 08/23/25 release Previous Rx's Medication Instructions Recorded allopurinol 300 mg tablet 300 mg PO HS #90 tabs 03/31/21 BiPap Machine See Rx Instructions .Route 08/13/21 .COMPLEX #1 ea CPAP Supplies See Rx Instructions .Route 01/20/22 .COMPLEX #1 ea loperamide 2 mg tablet 1 mg (1/2 x 2 mg) PO DAILY PRN 01/15/24 (Anti-Diarrheal (loperamide)) loose stool #30 tabs apixaban 5 mg tablet (Eliquis) 5 mg PO BID #180 tabs 02/10/24 carvedilol 25 mg tablet 25 mg PO BID #180 tabs 01/11/25 atorvastatin 40 mg tablet 40 mg PO HS #90 tabs 02/18/25 sacubitril 97 mg-valsartan 103 mg 1 tab PO BID #180 tabs 07/23/25 tablet (Entresto) zolpidem 5 mg tablet (Ambien) 10 mg (2 x 5 mg) PO ONCE #2 tabs 08/14/25 furosemide 40 mg tablet 40 mg PO DAILY PRN wt gain, 08/23/25 swelling, shortness of breath #15 tabs Results & Data (ED) Vital Signs Vital Signs - 24 hr 09/10/25 11:04 09/10/25 11:38 09/10/25 11:39 Temperature 36.4 C L Temperature Source Oral Pulse Rate 85 82 82 Pulse Rate [Apical] Respiratory Rate 19 Respiratory Effort / Characteristics Non-Labored Spontaneous Respiratory Depth Normal Respiratory Pattern Blood Pressure 108/59 L Blood Pressure [Right Arm] Blood Pressure Mean 75 Blood Pressure Mean [Right Arm] Blood Pressure Position Sitting Pulse Oximetry 96 Oxygen Delivery Method Room Air Sepsis Recent Fever Within 48 Hours No Sepsis New/Unexplained Change in Mental Status N/A Sepsis Action Taken by Nursing No Action Required 09/10/25 11:58 09/10/25 12:01 Temperature Temperature Source Pulse Rate Pulse Rate [Apical] 88 80 Respiratory Rate 18 16 Respiratory Effort / Characteristics Non-Labored Spontaneous Respiratory Depth Normal Respiratory Pattern Regular Blood Pressure Blood Pressure [Right Arm] 130/93 129/72 Blood Pressure Mean Blood Pressure Mean [Right Arm] 105 91 Blood Pressure Position Pulse Oximetry 96 95 Oxygen Delivery Method Room Air Room Air Sepsis Recent Fever Within 48 Hours Sepsis New/Unexplained Change in Mental Status Sepsis Action Taken by Nursing Discharge Plan Visit Data Chief Complaint: Bleeding Stated Complaint: BLEEDING FROM PREVIOUS ER VISIT ED Provider: Paul Bolton ED Midlevel Provider: Ita Perla Discharge Problem: Abscess of scrotum, Chronic anticoagulation Patient Disposition: Admitted As Inpatient Condition: Good Forms Stand Alone Forms: My [facility] [employer] Prescriptions Prescriptions: No Action allopurinol 300 mg tablet 300 mg PO HS Qty: 90 3RF loperamide [Anti-Diarrheal (loperamide)] 2 mg tablet 1 mg PO DAILY PRN (Reason: loose stool) Qty: 30 5RF Eliquis 5 mg tablet 5 mg PO BID Qty: 180 3RF carvedilol 25 mg tablet 25 mg PO BID Qty: 180 3RF atorvastatin 40 mg tablet 40 mg PO HS Qty: 90 3RF Entresto 97-103 mg tablet 1 tab PO BID Qty: 180 3RF BiPap Machine Misc See Rx Instructions .ROUTE .COMPLEX Qty: 1 0RF Rx Instructions: BiPAP ST 18/14 with a backup rate of 12. Mask fit patient comfort, heated modification, compliance download capabilities, Care Plus; CPAP Supplies Misc See Rx Instructions .ROUTE .COMPLEX Qty: 1 0RF Rx Instructions: Please fit patient with hybrid oronasal mask such as Playdate AppWear. Aero care; aspirin 81 mg tablet,delayed release (DR/EC) 81 mg PO QAM pantoprazole 40 mg tablet,delayed release (DR/EC) 40 mg PO DAILY furosemide 40 mg tablet 40 mg PO DAILY PRN (Reason: wt gain, swelling, shortness of breath) Qty: 15 5RF zolpidem [Ambien] 5 mg tablet 10 mg PO ONCE Qty: 2 0RF Rx Instructions: Take 2 tablet orally on arrival to sleep lab multivitamin Tablet 1 tab PO QAM Joint Health 40-10-5-3.3 mg Tablet 1 tab PO QAM Jardiance 10 mg tablet 10 mg PO QAM latanoprost 0.005 % Drops 1 drp OPL HS Referrals Referrals: Rodney Moreira MD [Primary Care Provider] -
--- NOTE | 2025-09-10 12:15 | Urology Consultation ---
Date of Consultation September 10, 2025 Assessment & Plan (1) Scrotal abscess: (2) Infected hematoma: Plan 85-year-old male who sustained a fall and is a blood thinner several weeks ago and initially noticed a swelling in his inferior scrotum/perineum and was seen in the emergency department on 09/05/2025. A scrotal ultrasound was obtained which question an abscess but the ED felt clinically it appeared more to be an abscess and they discharged him home. He has since restarted his Eliquis. He came in with drainage from this area and foul-smelling output. Afebrile with stable vitals. No labs have been drawn at this point. Based on his history and exam, I think he has an infected cyst scrotal hematoma and given that he is on blood thinners, I would prefer to do this in the OR with better hemostatic control as opposed to the bedside. I recommend a scrotal incision and drainage. Risks and benefits discussed. Consent obtained. Patient marked. Roberto to the OR. He last ate at 8 AM but I think we should forego n.p.o. status as I am concerned about an infected abscess and would prefer not to wait till he is appropriately n.p.o. at 4:00. Recommend admission to medicine for his multiple health issues and for likely need for antibiotics. History of Present Illness History of Present Illness 85-year-old male who sustained a fall and is a blood thinner several weeks ago and initially noticed a swelling in his inferior scrotum/perineum and was seen in the emergency department on 09/05/2025. A scrotal ultrasound was obtained which question an abscess but the ED felt clinically it appeared more to be an abscess and they discharged him home. He has since restarted his Eliquis. He came in with drainage from this area and foul-smelling output. Afebrile with stable vitals. No labs have been drawn at this point. Allergies Allergy/AdvReac Type Severity Reaction Status Date / Time lisinopril AdvReac Mild Cough. Verified 08/23/25 14:05 Home Medications Medication Instructions Recorded Confirmed Type allopurinol 300 mg tablet 300 mg PO HS #90 tabs 03/31/21 08/23/25 Rx cartilage 40 mg-collagen II 10 1 tab PO QAM 04/21/21 08/23/25 History mg-boron 5 mg-hyaluronate 3.3 mg tablet ([employer]) multivitamin 1 tab PO QAM 04/21/21 08/23/25 History BiPap Machine See Rx Instructions .Route 08/13/21 08/23/25 Rx .COMPLEX #1 ea CPAP Supplies See Rx Instructions .Route 01/20/22 08/23/25 Rx .COMPLEX #1 ea aspirin 81 mg tablet,delayed 81 mg PO QAM 04/22/22 08/23/25 History release loperamide 2 mg tablet 1 mg (1/2 x 2 mg) PO DAILY PRN 11/21/23 08/23/25 Rx (Anti-Diarrheal (loperamide)) loose stool #30 tabs apixaban 5 mg tablet (Eliquis) 5 mg PO BID #180 tabs 02/10/24 08/23/25 Rx carvedilol 25 mg tablet 25 mg PO BID #180 tabs 01/11/25 08/23/25 Rx atorvastatin 40 mg tablet 40 mg PO HS #90 tabs 02/18/25 08/23/25 Rx empagliflozin 10 mg tablet 10 mg PO QAM 03/11/25 08/23/25 History (Jardiance) latanoprost 0.005 % eye drops 1 drp OPL HS 03/11/25 08/23/25 History sacubitril 97 mg-valsartan 103 mg 1 tab PO BID #180 tabs 07/23/25 08/23/25 Rx tablet (Entresto) zolpidem 5 mg tablet (Ambien) 10 mg (2 x 5 mg) PO ONCE #2 tabs 08/14/25 08/23/25 Rx furosemide 40 mg tablet 40 mg PO DAILY PRN wt gain, 08/23/25 08/23/25 Rx swelling, shortness of breath #15 tabs pantoprazole 40 mg tablet,delayed 40 mg PO DAILY 08/23/25 History release Patient History Medical History On anticoagulant therapy Arthritis BPH (benign prostatic hyperplasia) GERD (gastroesophageal reflux disease) Barretts esophagus CHF (congestive heart failure) Hx of gout Atrial fibrillation followed by Dr. Craig ICD (implantable cardioverter-defibrillator) in place medronic device, implanted 2022>gets checked every 6 months Pacemaker medtronic, implanted 2022>last checked "gets done every 6 months" Cardiomyopathy Hypertension Hyperlipidemia Sleep apnea cpap Esophageal stricture History of basal cell carcinoma Osteoarthritis Surgical History History of esophagogastroduodenoscopy (EGD) History of colonoscopy History of tooth extraction H/O non-cataract eye surgery left "high pressures' Stented coronary artery PCI of ostial LM into proximal LAD with ANGELA. POBA ostium of LCx>[address] [facility] History of bilateral cataract extraction History of colonoscopy with polypectomy History of esophagogastroduodenoscopy (EGD) History of intestinal surgery occured at age 3 days old, pt unsure of details. Denies any GI abnormalities or complications. History of repair of rotator cuff right History of cardiac cath 2010 @ [facility]--no stents Family History Grandfather Myocardial infarction Daughter Pancreatic cancer Hypothyroidism Father Stroke Other Hypertension No family history of adverse response to anesthesia Denies family history of Colon cancer Ovarian cancer Prostate cancer Breast cancer Social History Smoking Status: Never smoker Second Hand Exposure: Yes (as a child); Do You Dip or Chew Tobacco: No; Hx Alcohol Use: Yes Alcohol type: beer and wine Alcohol Intake Frequency: 2-3 x/Week Alcohol Intake Frequency Comment: 1 times weekly Hx Substance Use: No Preferred Language: Romansh Communication Ability: Effective Visual Impairment: Diminished Hearing Ability: Normal Shoeblack Required: No Beliefs That Will Affect Care: None marital status: Current Living Situation: Spouse current occupational status: retired current occupation: Retired Feels Safe at Home: Yes Childhood Exposure to Second-Hand Smoke: Yes Diet: low salt Diet Comment: Elana's type diet from time to time caffeine: No Dental Care, Regularly: Yes Physical Activity Frequency: 1-2 Times per Week Physical Activity Frequency Comment: treadmill,weights Seatbelt Use: always Sunscreen Use: Yes Do you think of yourself as: straight/heterosexual Assistive Devices: CPAP and Glasses Physical Exam Physical Exam: General: Alert and oriented, no acute distress HEENT: Normocephalic, mucous membranes moist Pulmonary: Nonlabored respirations Abdomen: Nondistended : Circumcised phallus with orthotopic meatus. Testicles descended bilaterally palpably normal. 3 cm firm indurated area on inferior scrotum near the perineum that appears consistent with a likely infected scrotal hematoma. No active drainage at this time and tender to palpation. Extremities: Moves all 4 spontaneously Neuro: No gross deficits Skin: Warm, dry, no rashes noted Results & Data Vital Signs (Past 12 Hours) Vital Signs Temp Pulse Pulse Resp BP BP Pulse Ox 09/10/25 12:01 80 16 129/72 95 09/10/25 11:58 88 18 130/93 96 09/10/25 11:39 82 09/10/25 11:04 36.4 C L 85 19 108/59 L 96 O2 Del Method 09/10/25 12:01 Room Air 09/10/25 11:58 Room Air 09/10/25 11:39 09/10/25 11:04 Room Air PG Care Time/CCT Total # of Minutes Spent Total Time Spent with Patient: Total time spent is greater than 50% in coordination of care (as documented) at patient's floor/unit and/or counseling patient: Coding Level of Care Code 40072 INT INP/OBS CARE 2/55MIN Diagnoses Scrotal abscess N49.2 Infected hematoma T14.8XXA; L08.9
--- NOTE | 2025-09-10 12:25 | History & Physical Report ---
<Statement entered by Ramirez Brewer, - 09/10/25 16:33> seen and examined this afternoon. will start unasyn for now and likely switch to augmentin on discharge I spent a total of 18 minutes coordinating, documenting, and providing care for this patient excluding time spent in the performance of separately billed services. This included personally reviewing all current laboratories and imaging studies, medical reconciliation, outpatient chart review and discussion with specialists Date of Service September 10, 2025 Assessment & Plan (1) Scrotal abscess: (2) Heart failure with reduced ejection fraction: (3) Coronary artery disease: (4) Atrial fibrillation, permanent: (5) Hypertension: (6) Hyperlipidemia: (7) Gastroesophageal reflux disease: (8) BPH with obstruction/lower urinary tract symptoms: (9) Gout: (10) Obstructive sleep apnea: Plan 85 year old male with PMH significant for HFrEF, dilated cardiomyopathy s/p ICD (2021), atrial fibrillation, CAD s/p stent (2020), hypertension, hyperlipidemia, GERD, Robertson's esophagus, BPH, JADA, and gout who presents to the ED on 09/10/2025 with scrotal swelling and bleeding. Scrotal abscess Patient presenting with scrotal swelling and bleeding Recent ER visit with ultrasound revealing irregular bordered nodular focus left scrotal wall with adjacent edema concerning for abscess but thought to be hematoma initially Urology consulted and planning for I&D today of suspected scrotal abscess Slight leukocytosis of 11K Vitals stable and afebrile NPO until OR Pain control Chronic HFrEF Dilated APPLICATION CHEMIST s/p ICD [facility] Card[facility] Continue Entresto Atrial fibrillation Eliquis on hold due to procedure Continue Coreg CAD s/p stent Baby aspirin on hold until direction from Urology Hypertension Continue Coreg Hyperlipidemia Continue statin GERD Robertson's esophagus Continue pantoprazole Gout Continue allopurinol JADA No longer on bipap/CPAP due to recent weight loss DVT Prophylaxis: SCDs while Eliquis on hold Code Status: FULL CODE - As per discussion at bedside with the patient. PCP: Rodney Moreira Disposition: admit to med surg Patient seen in collaboration with Dr. Brewer. Please see addendum. I spent a total of 70 minutes coordinating, documenting and providing care for this patient excluding time spent in the performance of separately billed services or time spent by another provider/QHP. Admission and Anticipated Discharge Date Admission Date: September 10, 2025 History of Present Illness Chief Complaint: scrotal abscess Primary Care Provider: Rodney Moreira MD 85 year old male with PMH significant for HFrEF, dilated cardiomyopathy s/p ICD (2021), atrial fibrillation, CAD s/p stent (2020), hypertension, hyperlipidemia, GERD, Robertson's esophagus, BPH, JADA, and gout who presents to the ED on 09/10/2025 with scrotal bleeding. Previously had a mechanical fall on 08/30/2025 where he sustained minor phalange fractures that were temporarily splinted. Presented to ED again on 09/05/2025 with scrotal swelling and underwent ultrasound that was thought to be a hematoma and was discharged home with recommendation to follow up with Urology. Since then, reports his scrotal pain and swelling has been progressively worsening. Called Urology yesterday to get an outpatient appointment and couldn't be scheduled until the end of the month. Yesterday evening, started to notice bleeding from the scrotum. This morning he noticed the more watery and odorous drainage from the scrotum, which is why he sought evaluation in the ED. He took all of his medications yesterday including his Eliquis last evening. He denies any fevers, chills, chest pain, SOB, abdominal pain, problems urinating, N/V/D. Allergies Allergy/AdvReac Type Severity Reaction Status Date / Time lisinopril AdvReac Mild Cough. Verified 09/10/25 12:54 Home Medications Medication Instructions Recorded Confirmed Type allopurinol 300 mg tablet 300 mg PO HS #90 tabs 03/31/21 09/10/25 Rx cartilage 40 mg-collagen II 10 1 tab PO QAM 04/21/21 09/10/25 History mg-boron 5 mg-hyaluronate 3.3 mg tablet ([employer]) multivitamin 1 tab PO QAM 04/21/21 09/10/25 History aspirin 81 mg tablet,delayed 81 mg PO QAM 04/22/22 09/10/25 History release loperamide 2 mg tablet 1 mg (1/2 x 2 mg) PO DAILY PRN 11/21/23 09/10/25 Rx (Anti-Diarrheal (loperamide)) loose stool #30 tabs apixaban 5 mg tablet (Eliquis) 5 mg PO BID #180 tabs 02/10/24 09/10/25 Rx carvedilol 25 mg tablet 25 mg PO BID #180 tabs 01/11/25 09/10/25 Rx atorvastatin 40 mg tablet 40 mg PO HS #90 tabs 02/18/25 09/10/25 Rx sacubitril 97 mg-valsartan 103 mg 1 tab PO BID #180 tabs 07/23/25 09/10/25 Rx tablet (Entresto) zolpidem 5 mg tablet (Ambien) 10 mg (2 x 5 mg) PO ONCE #2 tabs 08/14/25 09/10/25 Rx furosemide 40 mg tablet 40 mg PO DAILY PRN wt gain, 08/23/25 09/10/25 Rx swelling, shortness of breath #15 tabs pantoprazole 40 mg tablet,delayed 40 mg PO DAILY 08/23/25 09/10/25 History release Past Med/Surg History Problem List (Updated 09/10/25 @ 13:11 by SEEMA Randhawa) Chronic anticoagulation (Acute) Abscess of scrotum (Acute) Scrotal abscess Heart failure with reduced ejection fraction Presence of single chamber implantable cardioverter-defibrillator (ICD) S/P coronary artery stent placement BPH with obstruction/lower urinary tract symptoms Atrial fibrillation, permanent on eliquis--follows with Dr. Craig Chronic anticoagulation eliquis bid Chronic systolic CHF (congestive heart failure) Dilated cardiomyopathy Obstructive sleep apnea (Chronic) does not use CPAP as ordered Hyperlipidemia (Chronic) Coronary artery disease (Chronic) Gastroesophageal reflux disease (Chronic) EGD (07/25) showed benign-appearing esophageal stenosis. This was dilated. Esophageal mucosal demonstrated gross and microscopic features of intestinal metaplasia consistent with Robertson's esophagus, negative for dysplasia in carcinoma. Repeat EGD q3 years. On chronic acid suppression with PPI Gout On allopurinol Robertson's esophagus (Chronic) Hypertension (Chronic) Medical History (Updated 09/10/25 @ 13:11 by SEEMA Randhawa) Bowel habit changes Chronic diarrhea Anemia Plantar wart Back pain Osteopenia Abdominal pain Infected hematoma SBO (small bowel obstruction) Prostate asymmetry Hematuria Urinary frequency Heart failure with improved ejection fraction (HFimpEF) Testicular swelling, left Esophageal dysphagia Left hydrocele Fecal incontinence Fall Contusion of face Finger fracture Hematoma of scrotum Acute pain in scrotum On anticoagulant therapy Arthritis BPH (benign prostatic hyperplasia) GERD (gastroesophageal reflux disease) Barretts esophagus CHF (congestive heart failure) Hx of gout Atrial fibrillation followed by Dr. Craig ICD (implantable cardioverter-defibrillator) in place medronic device, implanted 2022>gets checked every 6 months Pacemaker medtronic, implanted 2022>last checked "gets done every 6 months" Cardiomyopathy Hypertension Hyperlipidemia Sleep apnea cpap Esophageal stricture History of basal cell carcinoma Osteoarthritis Surgical History History of esophagogastroduodenoscopy (EGD) History of colonoscopy History of tooth extraction H/O non-cataract eye surgery left "high pressures' Stented coronary artery PCI of ostial LM into proximal LAD with ANGELA. POBA ostium of LCx>2020 at [facility] History of bilateral cataract extraction History of colonoscopy with polypectomy History of esophagogastroduodenoscopy (EGD) History of intestinal surgery occured at age 3 days old, pt unsure of details. Denies any GI abnormalities or complications. History of repair of rotator cuff right History of cardiac cath 2010 @ [facility]--no stents Family History Grandfather Myocardial infarction Daughter Pancreatic cancer Hypothyroidism Father Stroke Other Hypertension No family history of adverse response to anesthesia Denies family history of Colon cancer Ovarian cancer Prostate cancer Breast cancer Social History (Updated 09/10/25 @ 13:11 by SEEMA Randhawa) Smoking Status: Never smoker Second Hand Exposure: Yes (as a child); Do You Dip or Chew Tobacco: No; Hx Alcohol Use: Yes Alcohol type: beer and wine Alcohol Intake Frequency: 2-3 x /Week Alcohol Intake Frequency Comment: 1 times weekly Hx Substance Use: No Preferred Language: Khmer Communication Ability: Effective Hearing Ability: Normal Marketing Communications Leader Required: No Beliefs That Will Affect Care: None marital status: Current Living Situation: Spouse current occupational status: retired current occupation: Retired Feels Safe at Home: Yes Childhood Exposure to Second-Hand Smoke: Yes Diet: low salt Diet Comment: Elana's type diet from time to time caffeine: No Dental Care, Regularly: Yes Physical Activity Frequency: 1-2 Times per Week Physical Activity Frequency Comment: treadmill,weights Seatbelt Use: always Sunscreen Use: Yes Do you think of yourself as: straight/heterosexual Assistive Devices: Glasses Review of Systems Review of Systems: All systems reviewed & are unremarkable except as noted in HPI & below Physical Exam Physical Exam: General/Psych: elderly, sitting up in bed, NAD, conversing easily Head: normocephalic, +contusions to face Eyes: normal inspection, PERRL, conjunctivae pink ENT: external ear and nose normal, oropharynx normal Neck: normal visual inspection, trachea midline Respiratory: normal respiratory effort, lungs clear to auscultation, no wheeze/rales/rhonchi, no accessory muscle use Cardiovascular: irregularly irregular rate and rhythm, no murmur/rub/gallop Extremities: no cyanosis or clubbing, normal peripheral pulses, no BLE edema Abdomen/GI: normal bowel sounds, soft, nontender Neurologic/MSK: A+Ox3, motor strength 5/5, moves all extremities Skin: no rashes, normal color, warm and dry Results & Data Results & Data Vital Signs (Past 12 Hours) Vital Signs Temp Pulse Pulse Resp BP BP Pulse Ox 09/10/25 12:01 80 16 129/72 95 09/10/25 11:58 88 18 130/93 96 09/10/25 11:39 82 09/10/25 11:04 36.4 C L 85 19 108/59 L 96 O2 Del Method 09/10/25 12:01 Room Air 09/10/25 11:58 Room Air 09/10/25 11:39 09/10/25 11:04 Room Air Laboratory Results Short CBC 09/10/25 Range/Units Unknown WBC 11.25 H (4.8-10.8) K/ul Hgb 12.1 L (14.0-18.0) g/dl Hct 35.7 L (42.0-52.0) % Plt Count 185 (130-400) K/uL BMP 09/10/25 Unknown Sodium 138 Potassium 3.9 Chloride 104 Carbon Dioxide 27 BUN 19 Creatinine 1.00 Glucose 121 H Calcium 8.8 Liver Function 09/10/25 Range/Units Unknown Total Bilirubin 0.8 (0.2-1.0) mg/dl AST 17 (13-39) U/L ALT 12 (7-52) U/L Alkaline Phosphatase 86 (34-104) U/L Albumin 3.2 L (3.4-5.0) gm/dl I have independently reviewed and interpreted patient's admitting labs including CBC, CMP, PTT, PT/INR. Code Status & VTE Plan Code Status Full Code
--- NOTE | 2025-09-10 12:26 | Anesthesiology Consultation ---
Date of Service September 10, 2025 Assessment & Plan Chart Review Chart Review: Acceptable Risk for Surgery and Patient NOT seen in Pre Admission Testing Consults Requested none History Surgery Operation Date: 09/10/25 14:35 Proposed Procedures p Left Scrotal Abscess Incision and Drainage - Suman Schilling MD Height/Weight Height: 5 ft 9 in Weight: 63.4 kg Allergies Allergy/AdvReac Type Severity Reaction Status Date / Time lisinopril AdvReac Mild Cough. Verified 08/23/25 14:05 Medications Home Medications Medication Instructions Recorded Confirmed Last Taken allopurinol 300 mg tablet 300 mg PO HS #90 tabs 03/31/21 08/23/25 03/18/25 cartilage 40 mg-collagen II 10 1 tab PO QAM 04/21/21 08/23/25 03/18/25 mg-boron 5 mg-hyaluronate 3.3 mg tablet ([employer]) multivitamin 1 tab PO QAM 04/21/21 08/23/25 03/18/25 BiPap Machine See Rx Instructions .Route 08/13/21 08/23/25 Unknown .COMPLEX #1 ea CPAP Supplies See Rx Instructions .Route 01/20/22 08/23/25 Unknown .COMPLEX #1 ea aspirin 81 mg tablet,delayed 81 mg PO QAM 04/22/22 08/23/25 03/18/25 release loperamide 2 mg tablet 1 mg (1/2 x 2 mg) PO DAILY PRN 11/21/23 08/23/25 Unknown (Anti-Diarrheal (loperamide)) loose stool #30 tabs apixaban 5 mg tablet (Eliquis) 5 mg PO BID #180 tabs 02/10/24 08/23/25 03/16/25 carvedilol 25 mg tablet 25 mg PO BID #180 tabs 01/11/25 08/23/25 03/19/25 atorvastatin 40 mg tablet 40 mg PO HS #90 tabs 02/18/25 08/23/25 03/18/25 empagliflozin 10 mg tablet 10 mg PO QAM 03/11/25 08/23/25 03/18/25 (Jardiance) latanoprost 0.005 % eye drops 1 drp OPL HS 03/11/25 08/23/25 Unknown sacubitril 97 mg-valsartan 103 mg 1 tab PO BID #180 tabs 07/23/25 08/23/25 Unknown tablet (Entresto) zolpidem 5 mg tablet (Ambien) 10 mg (2 x 5 mg) PO ONCE #2 tabs 08/14/25 08/23/25 Unknown furosemide 40 mg tablet 40 mg PO DAILY PRN wt gain, 08/23/25 08/23/25 Unknown swelling, shortness of breath #15 tabs pantoprazole 40 mg tablet,delayed 40 mg PO DAILY 08/23/25 Unknown release Past Medical History Medical History On anticoagulant therapy Arthritis BPH (benign prostatic hyperplasia) GERD (gastroesophageal reflux disease) Barretts esophagus CHF (congestive heart failure) Hx of gout Atrial fibrillation followed by Dr. Craig ICD (implantable cardioverter-defibrillator) in place medronic device, implanted 2022>gets checked every 6 months Pacemaker medtronic, implanted 2022>last checked "gets done every 6 months" Cardiomyopathy Hypertension Hyperlipidemia Sleep apnea cpap Esophageal stricture History of basal cell carcinoma Osteoarthritis Past Family History Family History Grandfather Myocardial infarction Daughter Pancreatic cancer Hypothyroidism Father Stroke Other Hypertension No family history of adverse response to anesthesia Denies family history of Colon cancer Ovarian cancer Prostate cancer Breast cancer Past Surgical History Surgical History History of esophagogastroduodenoscopy (EGD) History of colonoscopy History of tooth extraction H/O non-cataract eye surgery left "high pressures' Stented coronary artery PCI of ostial LM into proximal LAD with ANGELA. POBA ostium of LCx>2020 at [facility] History of bilateral cataract extraction History of colonoscopy with polypectomy History of esophagogastroduodenoscopy (EGD) History of intestinal surgery occured at age 3 days old, pt unsure of details. Denies any GI abnormalities or complications. History of repair of rotator cuff right History of cardiac cath 2010 @ [facility]--no stents Social History Smoking Status: Never smoker Do You Dip or Chew Tobacco: No Hx Alcohol Use: Yes Alcohol type: beer and wine alcohol intake frequency: a few times a month Hx Substance Use: No substance use type: does not use Physical Exam Vital Signs Last Vital Signs Temp 36.4 C L 09/10/25 11:04 Pulse 80 09/10/25 12:01 Resp 16 09/10/25 12:01 BP 129/72 09/10/25 12:01 Pulse Ox 95 09/10/25 12:01 O2 Del Method Room Air 09/10/25 12:01
[2025-09-10] MEDS ORDERED: ONDANSETRON INJ 2 MG/ML 2 ML VIAL ONE (12:43)
[2025-09-10] MEDS ORDERED: GLYCOPYRROLATE 0.2 MG/ML VIAL ONE (12:43)
[2025-09-10] MEDS ORDERED: PROPOFOL IV EMULSION 10 MG/ML 20 ML VIAL IV ONE (12:43)
[2025-09-10] MEDS ORDERED: DEXAMETHASONE SOD INJ 4 MG/ML VIAL ONE (12:43)
[2025-09-10] MEDS ORDERED: LIDOCAINE 2% 2 ML VIAL/AMP(20MG/ML) INFIL ONE (12:43)
[2025-09-10 12:46] LABS: Hematocrit (blood only) 35.7 % (42.0-52.0); Hemoglobin 12.1 g/dl (14.0-18.0); Immature Granulocytes # (auto) 0.04 K/uL (0.01-0.20); Immature Granulocytes % (auto) 0.4 %; Mean Corpuscular Hemoglobin 31.0 pg (25.0-34.0); Mean Corpuscular Volume 91.5 fL (80.0-100.0); Platelet Count 185 K/uL (130-400); RDW Standard Deviation 46.2 fL (36.4-46.3); Red Blood Count 3.90 M/uL (4.70-6.10); White Blood Count 11.25 K/ul (4.8-10.8)
[2025-09-10] MEDS ORDERED: ROCURONIUM BROMIDE 10 MG/ML 5 ML VIAL IV ONE (12:49)
[2025-09-10] MEDS ORDERED: SUGAMMADEX SODIUM 200 MG/2 ML VIAL IV ONE (12:52)
[2025-09-10 13:03] LABS: Alanine Aminotransferase 12.0 U/L (7-52); Albumin Globulin Ratio 0.9 (0.9-2); Albumin Level 3.2 gm/dl (3.4-5.0); Alkaline Phosphatase 86.0 U/L (34-104); Anion Gap 7.0 (3-11); Bilirubin,Total 0.8 mg/dl (0.2-1.0); Blood Urea Nitrogen 19.0 mg/dl (6-23); Calcium 8.8 mg/dl (8.6-10.3); Carbon Dioxide 27.0 mmol/L (21-32); Chloride 104.0 mmol/L (98-107); Creatinine Clr Calc Pharmacy 49.3 ml/min; Globulin 3.4 gm/dl (2.5-4.0); Glucose 121.0 mg/dl (70-99(Fasting)); Potassium 3.9 mmol/L (3.5-5.1); Sodium 138.0 mmol/L (136-145); Total Protein 6.6 gm/dl (6.0-8.3)
[2025-09-10] MEDS: LACTATED RINGER'S 1,000 ML IV SCH (13:06)
[2025-09-10 13:13] LABS: INR 1.1 (0.9-1.1); Partial Thromboplastin Time 37 Seconds (21-31); Prothrombin Time 11.9 Seconds (9.0-12.0)
[2025-09-10] MEDS ORDERED: ONDANSETRON INJ 2 MG/ML 2 ML VIAL IV PRN ×2 (13:15→15:39)
[2025-09-10] MEDS ORDERED: ATROPINE SULFATE 0.1 MG/ML 10ML SYR IV PRN (13:15)
[2025-09-10] MEDS ORDERED: PHENYLEPHRINE 100MCG/ML 5ML SYR ONE (13:26)
--- NOTE | 2025-09-10 13:29 | Electrocardiogram Report ---
Test Reason : Blood Pressure : */* mmHG Vent. Rate : 75 BPM Atrial Rate : * BPM P-R Int : * ms QRS Dur : 116 ms QT Int : 412 ms P-R-T Axes : * -45 40 degrees QTcB Int : 460 ms Atrial fibrillation with premature ventricular or aberrantly conducted complexes Left axis deviation Minimal voltage criteria for LVH, may be normal variant Septal infarct (cited on or before 21-Apr-2021) Abnormal ECG When compared with ECG of 30-Aug-2025 17:33, Nonspecific T wave abnormality no longer evident in Inferior leads Nonspecific T wave abnormality no longer evident in Anterior leads Confirmed by Jatinder Mohr ([id number]) on 09/10/2025 1:28:58 PM Referred By: REFERRED SELF Confirmed By: Jatinder Mohr
[2025-09-10] MEDS: BUPIVACAINE 0.5 % 5 MG/1 ML MPF 30ML VIAL ONE (13:55)
--- NOTE | 2025-09-10 14:15 | Operative Report ---
PG Post Operative Report Pre & Post Diagnosis Scrotal abscess/infected hematoma Operation Date: 09/10/25 14:35 <No data on this case meets the specified criteria> Scrotal abscess/infected hematoma I identified the patient and participated in the time-out.: Yes Procedure Incision and drainage of scrotal abscess/infected hematoma Operation Date: 09/10/25 14:35 <No data on this case meets the specified criteria> Surgeon Suman Schilling MD Ramp Jockey Yvan Ellis Estimated Blood Loss 5 Findings See Below 3 cm area of indurated and fluctuant tissue at the inferior scrotum. Drainage of somewhat purulent old blood product so I think this is an infected hematoma. Hemostatic at end of case and left packed. Specimens Scrotal abscess culture Drains None Anesthesia Type General Complications none Indications 85-year-old male who was seen in the hospital several days ago with a suspected scrotal abscess versus hematoma and discharged. He returned today with worsening symptoms and drainage. Physical exam was consistent with a suspected infected hematoma. He was taken to the OR as he is on Eliquis for better hemostatic control as opposed to doing it at the bedside. Description of Procedure After informed consent was obtained, the patient was transported to the operative suite. General anesthesia was induced. They were placed in dorsal lithotomy position and prepped and draped in sterile fashion. They received preoperative Ancef. An appropriate surgical timeout was performed. 10 cc of half percent Marcaine plain was used to anesthetize the area. A Cuevas catheter was inserted to palpate the urethra and the perineum and balloon was inflated with 10 cc of sterile water. A 1 cm stab incision was made in the most fluctuant area of the abscess and there was some purulent, liquefied blood that drained. This was cultured. Using a combination of finger dissection and clamps, this area was further broken up to address any additional loculations. The incision was slightly increased in size using Metzenbaum scissors. The wound was copiously irrigated. Hemostasis of the skin edges was achieved with the Bovie cautery. The wound was then packed with 1 inch gauze. Cuevas catheter was removed. Hemostasis was appropriate. This concluded the end of the procedure. All counts correct at the end of the case. I was present scrubbed and actively participated for the entirety of the proc edure. I attest to the content of the Intraoperative Record and any orders documented therein. Any exceptions are noted below.
--- NOTE | 2025-09-10 14:41 | Anesthesiology Progress Note ---
Date of Service September 10, 2025 Anesthesia Post Procedure Vital Signs Vital Signs: Temp Pulse Pulse Resp BP BP Pulse Ox 09/10/25 14:35 66 16 119/70 99 09/10/25 14:25 70 17 98/62 L 99 09/10/25 14:15 73 16 99/57 L 98 09/10/25 14:08 37.3 C 77 15 112/61 100 09/10/25 12:55 36.6 C 83 20 149/92 H 94 09/10/25 12:35 80 15 139/76 96 09/10/25 12:01 80 16 129/72 95 09/10/25 11:58 88 18 130/93 96 09/10/25 11:39 82 09/10/25 11:38 82 09/10/25 11:04 36.4 C L 85 19 108/59 L 96 O2 Del Method O2 Flow Rate 09/10/25 14:35 Room Air 09/10/25 14:25 Oxymask 8 09/10/25 14:15 Oxymask 8 09/10/25 14:08 Oxymask 8 09/10/25 12:55 Room Air 09/10/25 12:35 Room Air 09/10/25 12:01 Room Air 09/10/25 11:58 Room Air 09/10/25 11:39 09/10/25 11:38 09/10/25 11:04 Room Air Transfer of Care Handoff Completed per policy Notes Mental Status: alert / awake / arousable Patient Amnestic to Procedure: Yes Nausea / Vomiting: adequately controlled Pain: adequately controlled Airway Patency, RR, SpO2: stable & adequate BP & HR: stable & adequate Hydration State: stable & adequate Anesthetic Complications: no major complications apparent
[2025-09-10] MEDS ORDERED: POLYETHYLENE (MIRALAX) 17 GM PACK PO PRN (15:39)
[2025-09-10] MEDS: AMPICILLIN/SULBACTAM SOD 3,000 MG/100 ML BAG IV SCH (18:33)
[2025-09-10] MEDS: ATORVASTATIN 40 MG TAB PO SCH (21:44)
[2025-09-10] MEDS: VALSARTAN/SACUBITRIL 103/97MG TAB PO SCH (21:44)
[2025-09-11] MEDS: ACETAMINOPHEN 500 MG TAB PO PRN (04:17)
[2025-09-11 07:19] LABS: Hematocrit (blood only) 33.5 % (42.0-52.0); Hemoglobin 11.5 g/dl (14.0-18.0); Mean Corpuscular Hemoglobin 31.3 pg (25.0-34.0); Mean Corpuscular Volume 91.0 fL (80.0-100.0); Platelet Count 188 K/uL (130-400); RDW Standard Deviation 45.1 fL (36.4-46.3); Red Blood Count 3.68 M/uL (4.70-6.10); White Blood Count 7.78 K/ul (4.8-10.8)
[2025-09-11 07:48] LABS: Anion Gap 7.0 (3-11); Blood Urea Nitrogen 23.0 mg/dl (6-23); Calcium 8.9 mg/dl (8.6-10.3); Carbon Dioxide 29.0 mmol/L (21-32); Chloride 103.0 mmol/L (98-107); Creatinine Clr Calc Pharmacy 50.0 ml/min; Glucose 136.0 mg/dl (70-99(Fasting)); Magnesium 2.0 mg/dl (1.7-2.4); Potassium 4.5 mmol/L (3.5-5.1); Sodium 139.0 mmol/L (136-145)
[2025-09-11] MEDS ORDERED: INFLUENZA VACC TS2025-26(65y+)/PF (IIV3) 0.5mL Syr IM ONE (08:00)
--- NOTE | 2025-09-11 09:05 | Urology Progress Note ---
Date of Service September 11, 2025 Assessment & Plan (1) Abscess of scrotum: Plan: Patient POD #1 status post scrotal I&D of scrotal abscess/infected hematoma Patient afebrile with stable vitals Labs reviewedcreatinine 1.1, WBC 7.78, hemoglobin 11.5 Wound cultures pending Continue with antibiotics and follow cultures Wound nurse consulted and will exchange packing today Continue with wound care Continue supportive care Will arrange outpatient follow-up with our service Urology will sign off, please contact our service with any additional questions or concerns Admission and Anticipated Discharge Date Admission Date: September 10, 2025 Subjective Patient seen and examined at bedside. He is awake and resting in bed. Denies pain at rest. He notices some scrotal discomfort when sitting up. Voiding spontaneously. No fever or chills. Review of Systems Constitutional: as per Subjective / HPI Genitourinary: + as per Subjective / HPI Physical Exam Constitutional: no acute distress Respiratory: normal respiratory effort; no respiratory distress and no labored breathing Gastrointestinal (Abdomen): Inspection/Auscultation: abdomen normal to inspection Musculoskeletal: Head/Neck/Chest: normocephalic Skin: scattered ecchymoses Neurologic: moves all extremities and awake Psychiatric: Orientation: alert and oriented x 3 Genitourinary: ABDs with serosanguinous drainage. Wound packing intact, wound edges appear healthy. Results & Data Vital Signs (Past 12 Hours) Vital Signs Temp Pulse Pulse Resp BP Pulse Ox O2 Del Method 09/11/25 08:57 36.5 C 74 16 131/71 96 Room Air 09/11/25 03:35 36.6 C 84 18 120/69 93 Room Air 09/10/25 22:39 36.8 C 86 16 102/64 95 Room Air 09/10/25 21:45 87 121/77 PG Care Time/CCT Total # of Minutes Spent Total Time Spent with Patient: Total time spent is greater than 50% in coordination of care (as documented) at patient's floor/unit and/or counseling patient: Coding Level of Care Code 16795 SUB INP/OBS CARE 12/01MIN Diagnoses Abscess of scrotum N49.2
--- NOTE | 2025-09-11 14:50 | Hospitalist Progress Note ---
Date of Service September 11, 2025 Assessment & Plan (1) Scrotal abscess: (2) Heart failure with reduced ejection fraction: (3) Coronary artery disease: (4) Atrial fibrillation, permanent: (5) Hypertension: (6) Hyperlipidemia: (7) Gastroesophageal reflux disease: (8) BPH with obstruction/lower urinary tract symptoms: (9) Gout: (10) Obstructive sleep apnea: Plan 85 year old male with PMH significant for HFrEF, dilated cardiomyopathy s/p ICD (2021), atrial fibrillation, CAD s/p stent (2020), hypertension, hyperlipidemia, GERD, Robertson's esophagus, BPH, JADA, and gout who presents to the ED on 09/10/2025 with scrotal swelling and bleeding. Scrotal abscess Patient presenting with scrotal swelling and bleeding Recent ER visit with ultrasound revealing irregular bordered nodular focus left scrotal wall with adjacent edema concerning for abscess but thought to be hematoma initially Urology consulted and planning for I&D today of suspected scrotal abscess Slight leukocytosis of 11K Appreciate urology input and recommendation Status post I&D of scrotal abscess Will continue current intravenous antibiotic with Unasyn and possible changed to oral Augmentin on discharge Denies any fever no chills and has been feeling better following the procedure Significant bruising involving the face and neck and also generalized Secondary to falls No pain and no hematoma Will take approximately 6 weeks to get back to normal skin color Chronic HFrEF 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 [place] [facility] [place] Entresto Atrial fibrillation Eliquis on hold due to procedure Continue Coreg Rate is controlled and denies any chest pain CAD s/p stent Baby aspirin on hold until direction from Urology Hypertension Continue Coreg Hyperlipidemia Continue statin GERD Robertson's esophagus Continue pantoprazole Gout Continue allopurinol JADA No longer on bipap/CPAP due to recent weight loss DVT Prophylaxis: SCDs while Eliquis on hold Will restart Eliquis likely end of the day tomorrow Code Status: FULL CODE - As per discussion at bedside with the patient. PCP: Rodney Moreira Disposition: admit to med surg Admission and Anticipated Discharge Date Admission Date: September 10, 2025 Subjective 09/11/2025 The patient was seen and examined in medical floor He was admitted with scrotal swelling and bleeding with a history of fall recently Noted to have scrotal abscess He is status post I&D by the urology service and has been feeling better Denies any fever and/or chills and does not have any other significant symptoms Review of Systems Review of Systems: All systems reviewed and are unremarkable except as noted below Physical Exam Physical Exam: Lying in bed without any acute distress Constitutional: well developed, well nourished, + ill appearing and average body habitus Eyes: Has significant bruising involving the face and the neck from recent fall ENMT: external ear and nose normal, oropharynx normal Neck: Significant bruising involving the face and neck from recent fall Respiratory: no respiratory distress Auscultation: lungs clear to auscultation bilaterally Cardiovascular: Rate/Rhythm: regular rate and regular rhythm; not tachycardic Heart Sounds: normal S1 and normal S2; no murmur Extremities: no edema Gastrointestinal (Abdomen): Inspection/Auscultation: normal bowel sounds; abdomen not distended Percussion/Palpation: abdomen soft; abdomen nontender Musculoskeletal: No acute arthritis involving any of the joint Neurologic: normal touch/pain/proprioception and moves all extremities; no focal motor deficits Genitourinary: Scrotal area is bandaged following I&D Results & Data Results & Data Vital Signs (Past 12 Hours) Vital Signs Temp Pulse Resp BP Pulse Ox O2 Del Method 09/11/25 14:40 36.5 C 75 16 130/67 93 Room Air 09/11/25 08:57 36.5 C 74 16 131/71 96 Room Air 09/11/25 03:35 36.6 C 84 18 120/69 93 Room Air Laboratory Results Short CBC 09/11/25 Range/Units 06:57 WBC 7.78 (4.8-10.8) K/ul Hgb 11.5 L (14.0-18.0) g/dl Hct 33.5 L (42.0-52.0) % Plt Count 188 (130-400) K/uL BMP 09/11/25 06:57 Sodium 139 Potassium 4.5 Chloride 103 Carbon Dioxide 29 BUN 23 Creatinine 1.10 Glucose 136 H Calcium 8.9 Medications Administered Current Inpatient Medications Acetaminophen (Acetaminophen 500 Mg Tab) 1,000 mg PO Q8 PRN PRN Reason: Mild Pain (Scale 1, 2, 3) Stop: 10/10/25 15:38 Last Admin: 09/11/25 04:17 Dose: 1,000 mg Allopurinol (Allopurinol 300 Mg Tab) 300 mg PO HS [facility] Stop: 10/10/25 20:59 Last Admin: 09/10/25 21:44 Dose: 300 mg Atorvastatin Calcium (Atorvastatin 40 Mg Tab) 40 mg PO HS [facility] Stop: 10/10/25 20:59 Last Admin: 09/10/25 21:44 Dose: 40 mg Carvedilol (Carvedilol 25 Mg Tab) 25 mg PO BID [facility] Stop: 10/10/25 20:59 Last Admin: 09/11/25 08:21 Dose: 25 mg Ampicillin Sodium/Sulbactam Sodium (Unasyn) 3,000 mg in 100 mls @ 200 mls/hr IV Q6H [facility] Stop: 09/20/25 16:59 Last Infusion: 09/11/25 12:15 Dose: Infused Ondansetron HCl (Ondansetron Inj 2 Mg/Ml 2 Ml Vial) 4 mg IV Q6H PRN PRN Reason: Nausea Stop: 10/10/25 15:38 Oxycodone HCl (Oxycodone Hcl Ir 5 Mg Tab (Immediate Release)) 5 mg PO Q4 PRN PRN Reason: Mod-Sev Pain (Scale 4-10) Stop: 09/24/25 15:38 Last Admin: 09/11/25 10:10 Dose: 5 mg Pantoprazole Sodium (Pantoprazole 40 Mg Tab) 40 mg PO DAILY [facility] Stop: 10/11/25 08:59 Last Admin: 09/11/25 08:22 Dose: 40 mg Polyethylene Glycol (Polyethylene (Miralax) 17 Gm Pack) 17 gm PO DAILY PRN PRN Reason: Constipation Stop: 10/10/25 15:38 Sacubitril/Valsartan (Valsartan/Sacubitril 103/97mg Tab) 1 tab PO BID [facility] Stop: 10/10/25 20:59 Last Admin: 09/11/25 08:22 Dose: 1 tab
[2025-09-12 08:01] LABS: Hematocrit (blood only) 34.8 % (42.0-52.0); Hemoglobin 11.7 g/dl (14.0-18.0); Immature Granulocytes # (auto) 0.03 K/uL (0.01-0.20); Immature Granulocytes % (auto) 0.4 %; Mean Corpuscular Hemoglobin 31.0 pg (25.0-34.0); Mean Corpuscular Volume 92.3 fL (80.0-100.0); Platelet Count 221 K/uL (130-400); RDW Standard Deviation 46.2 fL (36.4-46.3); Red Blood Count 3.77 M/uL (4.70-6.10); White Blood Count 7.55 K/ul (4.8-10.8)
[2025-09-12 08:15] VITALS: BP 151/70; PULSE 82; RESP 16; TEMP 97.5; O2SAT 97
[2025-09-12 08:20] LABS: Anion Gap 3.0 (3-11); Blood Urea Nitrogen 26.0 mg/dl (6-23); Calcium 8.9 mg/dl (8.6-10.3); Carbon Dioxide 32.0 mmol/L (21-32); Chloride 106.0 mmol/L (98-107); Creatinine Clr Calc Pharmacy 53.4 ml/min; Glucose 94.0 mg/dl (70-99(Fasting)); Potassium 4.0 mmol/L (3.5-5.1); Sodium 141.0 mmol/L (136-145)
--- NOTE | 2025-09-12 12:00 | Hospitalist Progress Note ---
Date of Service September 12, 2025 Assessment & Plan (1) Scrotal abscess: (2) Heart failure with reduced ejection fraction: (3) Coronary artery disease: (4) Atrial fibrillation, permanent: (5) Hypertension: (6) Hyperlipidemia: (7) Gastroesophageal reflux disease: (8) BPH with obstruction/lower urinary tract symptoms: (9) Gout: (10) Obstructive sleep apnea: Plan 85 year old male with PMH significant for HFrEF, dilated cardiomyopathy s/p ICD (2021), atrial fibrillation, CAD s/p stent (2020), hypertension, hyperlipidemia, GERD, Robertson's esophagus, BPH, JADA, and gout who presents to the ED on 09/10/2025 with scrotal swelling and bleeding. Scrotal abscess Patient presenting with scrotal swelling and bleeding Recent ER visit with ultrasound revealing irregular bordered nodular focus left scrotal wall with adjacent edema concerning for abscess but thought to be hematoma initially Urology consulted and planning for I&D today of suspected scrotal abscess Slight leukocytosis of 11K Appreciate urology input and recommendation Status post I&D of scrotal abscess Will continue current intravenous antibiotic with Unasyn and possible changed to oral Augmentin on discharge Denies any fever no chills and has been feeling better following the procedure Appreciate wound care input and recommendation about dressing and also follow-up appointment He will be given oral Augmentin to finish total of 10 days of antibiotic He was advised to try [id number] probiotics while on antibiotic Will be discharged home this afternoon Significant bruising involving the face and neck and also generalized Secondary to falls No pain and no hematoma Will take approximately 6 weeks to get back to normal skin color Chronic HFrEF 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 Card[facility] Continue Entresto Atrial fibrillation Eliquis on hold due to procedure Continue Coreg Rate is controlled and denies any chest pain CAD s/p stent Baby aspirin on hold until direction from Urology Hypertension Continue Coreg Hyperlipidemia Continue statin GERD Robertson's esophagus Continue pantoprazole Gout Continue allopurinol JADA No longer on bipap/CPAP due to recent weight loss DVT Prophylaxis: SCDs while Eliquis on hold Will restart Eliquis likely end of the day tomorrow Code Status: FULL CODE - As per discussion at bedside with the patient. PCP: Rodney Moreira Disposition: admit to med surg Admission and Anticipated Discharge Date Admission Date: September 10, 2025 Subjective 09/11/2025 The patient was seen and examined in medical floor He was admitted with scrotal swelling and bleeding with a history of fall recently Noted to have scrotal abscess He is status post I&D by the urology service and has been feeling better Denies any fever and/or chills and does not have any other significant symptoms 09/12/2025 The patient was seen and examined in medical floor He has been feeling much better and denies any scrotal pain No fever and no chills He will be discharged home this afternoon Review of Systems Review of Systems: All systems reviewed and are unremarkable except as noted below Physical Exam Physical Exam: Lying in bed without any acute distress Constitutional: well developed, well nourished, + ill appearing and average body habitus ENMT: external ear and nose normal, oropharynx normal Respiratory: no respiratory distress Auscultation: lungs clear to auscultation bilaterally Cardiovascular: Rate/Rhythm: regular rate and regular rhythm; not tachycardic Heart Sounds: normal S1 and normal S2; no murmur Extremities: no edema Gastrointestinal (Abdomen): Inspection/Auscultation: normal bowel sounds; abdomen not distended Percussion/Palpation: abdomen soft; abdomen nontender Neurologic: normal touch/pain/proprioception and moves all extremities; no focal motor deficits Results & Data Results & Data Vital Signs (Past 12 Hours) Vital Signs Temp Pulse Resp BP Pulse Ox O2 Del Method 09/12/25 08:05 36.4 C L 82 16 151/70 H 97 Room Air Laboratory Results Short CBC 09/12/25 Range/Units 07:33 WBC 7.55 (4.8-10.8) K/ul Hgb 11.7 L (14.0-18.0) g/dl Hct 34.8 L (42.0-52.0) % Plt Count 221 (130-400) K/uL BMP 09/12/25 07:33 Sodium 141 Potassium 4.0 Chloride 106 Carbon Dioxide 32 BUN 26 H Creatinine 1.03 Glucose 94 Calcium 8.9 Medications Administered Current Inpatient Medications Acetaminophen (Acetaminophen 500 Mg Tab) 1,000 mg PO Q8 PRN PRN Reason: Mild Pain (Scale 1, 2, 3) Stop: 10/10/25 15:38 Last Admin: 09/11/25 04:17 Dose: 1,000 mg Allopurinol (Allopurinol 300 Mg Tab) 300 mg PO HS [facility] Stop: 10/10/25 20:59 Last Admin: 09/11/25 21:49 Dose: 300 mg Atorvastatin Calcium (Atorvastatin 40 Mg Tab) 40 mg PO HS [facility] Stop: 10/10/25 20:59 Last Admin: 09/11/25 21:49 Dose: 40 mg Carvedilol (Carvedilol 25 Mg Tab) 25 mg PO BID [facility] Stop: 10/10/25 20:59 Last Admin: 09/12/25 08:57 Dose: 25 mg Ampicillin Sodium/Sulbactam Sodium (Unasyn) 3,000 mg in 100 mls @ 200 mls/hr IV Q6H [facility] Stop: 09/20/25 16:59 Last Admin: 09/12/25 11:09 Dose: 200 mls/hr Ondansetron HCl (Ondansetron Inj 2 Mg/Ml 2 Ml Vial) 4 mg IV Q6H PRN PRN Reason: Nausea Stop: 10/10/25 15:38 Oxycodone HCl (Oxycodone Hcl Ir 5 Mg Tab (Immediate Release)) 5 mg PO Q4 PRN PRN Reason: Mod-Sev Pain (Scale 4-10) Stop: 09/24/25 15:38 Last Admin: 09/12/25 11:07 Dose: 5 mg Pantoprazole Sodium (Pantoprazole 40 Mg Tab) 40 mg PO DAILY [facility] Stop: 10/11/25 08:59 Last Admin: 09/12/25 08:57 Dose: 40 mg Polyethylene Glycol (Polyethylene (Miralax) 17 Gm Pack) 17 gm PO DAILY PRN PRN Reason: Constipation Stop: 10/10/25 15:38 Sacubitril/Valsartan (Valsartan/Sacubitril 103/97mg Tab) 1 tab PO BID [facility] Stop: 10/10/25 20:59 Last Admin: 09/12/25 08:57 Dose: 1 tab
[2025-09-12] MEDS ORDERED: AMOXICILLIN/CLAVULANATE 875 MG TAB PO SCH (17:00)
--- NOTE | 2025-09-13 16:21 | Discharge Summary ---
Date of Service September 13, 2025 Admission HPI Per Admitting Provider 85 year old male with PMH significant for HFrEF, dilated cardiomyopathy s/p ICD (2021), atrial fibrillation, CAD s/p stent (2020), hypertension, hyperlipidemia, GERD, Robertson's esophagus, BPH, JADA, and gout who presents to the ED on 09/10/2025 with scrotal bleeding. Previously had a mechanical fall on 08/30/2025 where he sustained minor phalange fractures that were temporarily splinted. Presented to ED again on 09/05/2025 with scrotal swelling and underwent ultrasound that was thought to be a hematoma and was discharged home with recommendation to follow up with Urology. Since then, reports his scrotal pain and swelling has been progressively worsening. Called Urology yesterday to get an outpatient appointment and couldn't be scheduled until the end of the month. Yesterday evening, started to notice bleeding from the scrotum. This morning he noticed the more watery and odorous drainage from the scrotum, which is why he sought evaluation in the ED. He took all of his medications yesterday including his Eliquis last evening. He denies any fevers, chills, chest pain, SOB, abdominal pain, problems urinating, N/V/D. Admission Exam Per Admitting Provider Physical Exam: General/Psych: elderly, sitting up in bed, NAD, conversing easily Head: normocephalic, +contusions to face Eyes: normal inspection, PERRL, conjunctivae pink ENT: external ear and nose normal, oropharynx normal Neck: normal visual inspection, trachea midline Respiratory: normal respiratory effort, lungs clear to auscultation, no w heeze/rales/rhonchi, no accessory muscle use Cardiovascular: irregularly irregular rate and rhythm, no murmur/rub/gallop Extremities: no cyanosis or clubbing, normal peripheral pulses, no BLE edema Abdomen/GI: normal bowel sounds, soft, nontender Neurologic/MSK: A+Ox3, motor strength 5/5, moves all extremities Skin: no rashes, normal color, warm and dry Principal Diagnosis Scrotal abscess status post I&D Discharge Exam Lying in bed without any acute distress Constitutional well developed, well nourished, + ill appearing and average body habitus ENMT external ear and nose normal, oropharynx normal Respiratory no respiratory distress Auscultation: lungs clear to auscultation bilaterally Cardiovascular Rate/Rhythm: regular rate and regular rhythm; not tachycardic Heart Sounds: normal S1 and normal S2; no murmur Extremities: no edema Gastrointestinal (Abdomen) Inspection/Auscultation: normal bowel sounds; abdomen not distended Percussion/Palpation: abdomen soft; abdomen nontender Neurologic normal touch/pain/proprioception and moves all extremities; no focal motor deficits Discharge Data Allergies Allergy/AdvReac Type Severity Reaction Status Date / Time lisinopril AdvReac Mild Cough. Verified 09/10/25 12:54 Consultations 09/10/25 11:45 Consult Urology Stat 09/10/25 12:17 ED Decision to Admit Stat Procedures Performed Operation Date: 09/10/25 14:35 Actual Procedures p Left Scrotal Abscess Incision and Drainage(Not Applicable) - Suman Schilling MD Hospital Course (1) Scrotal abscess: (2) Heart failure with reduced ejection fraction: (3) Coronary artery disease: (4) Atrial fibrillation, permanent: (5) Hypertension: (6) Hyperlipidemia: (7) Gastroesophageal reflux disease: (8) BPH with obstruction/lower urinary tract symptoms: (9) Gout: (10) Obstructive sleep apnea: Plan 85 year old male with PMH significant for HFrEF, dilated cardiomyopathy s/p ICD (2021), atrial fibrillation, CAD s/p stent (2020), hypertension, hyperlipidemia, GERD, Robertson's esophagus, BPH, JADA, and gout who presents to the ED on 09/10/2025 with scrotal swelling and bleeding. Scrotal abscess Patient presenting with scrotal swelling and bleeding Recent ER visit with ultrasound revealing irregular bordered nodular focus left scrotal wall with adjacent edema concerning for abscess but thought to be hematoma initially Urology consulted and planning for I&D today of suspected scrotal abscess Slight leukocytosis of 11K Appreciate urology input and recommendation Status post I&D of scrotal abscess Will continue current intravenous antibiotic with Unasyn and possible changed to oral Augmentin on discharge Denies any fever no chills and has been feeling better following the procedure Appreciate wound care input and recommendation about dressing and also follow-up appointment He will be given oral Augmentin to finish total of 10 days of antibiotic He was advised to try [id number] probiotics while on antibiotic Will be discharged home this afternoon Significant bruising involving the face and neck and also generalized Secondary to falls No pain and no hematoma Will take approximately 6 weeks to get back to normal skin color Chronic HFrEF 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 PCP: Rodney Moreira Disposition: admit to med surg Total Time Total Time Spent Total Time Spent (In Minutes): 35 Minutes Discharge Plan Discharge Items Patient Disposition: Home - Self-Care Reason For Visit: SCROTAL ABSCESS Discharge Diagnosis: Scrotal abscess status post I&D Condition on Discharge: Fair Activity: Resume your previous activity Non-emergency contact: Primary Care Provider Call non-emergency contact if: you have any medication questions and your symptoms worsen Follow-up/Referrals: Rodney Moreira MD [Primary Care Provider] - (Date & Time 09/19/2025 11:20 AM Provider: Rodney Moreira MD [facility] ) Suman Schilling MD [Physician] - (The office will call you with an appointment.) Wound Care,Nurse [Registered Nurse] - 09/17/25 8:40 am ([address], [place], [place] [id number] ) Diet: Heart Healthy Addtl Attending Provider Instructions: Please take precautions to avoid falls Have your scrotal area bandaged as advised by the wound care Finish the course of antibiotic and you can try [id number] probiotics with antibiotic Please keep appointments with your healthcare providers Pending Studies at Discharge: No Stand-Alone Forms: [employer], Smoking Cessation Medications and DC Order Prescriptions: New amoxicillin-pot clavulanate 875-125 mg Tablet 1 tab PO BIDM Qty: 14 0RF oxycodone 5 mg Tablet 5 mg PO UD PRN (Reason: pain) Qty: 7 0RF Continued allopurinol 300 mg tablet 300 mg PO HS Qty: 90 3RF loperamide [Anti-Diarrheal (loperamide)] 2 mg tablet 1 mg PO DAILY PRN (Reason: loose stool) Qty: 30 5RF Eliquis 5 mg tablet 5 mg PO BID Qty: 180 3RF carvedilol 25 mg tablet 25 mg PO BID Qty: 180 3RF atorvastatin 40 mg tablet 40 mg PO HS Qty: 90 3RF Entresto 97-103 mg tablet 1 tab PO BID Qty: 180 3RF aspirin 81 mg tablet,delayed release (DR/EC) 81 mg PO QAM pantoprazole 40 mg tablet,delayed release (DR/EC) 40 mg PO DAILY furosemide 40 mg tablet 40 mg PO DAILY PRN (Reason: wt gain, swelling, shortness of breath) Qty: 15 5RF zolpidem [Ambien] 5 mg tablet 10 mg PO ONCE Qty: 2 0RF Rx Instructions: Take 2 tablet orally on arrival to sleep lab multivitamin Tablet 1 tab PO QAM Sciona 40-10-5-3.3 mg Tablet 1 tab PO QAM Discharge Orders: Discharge Order (Routine); Ordered 09/12/25 Ordered By: Kita Triplett Admission Data Admit Date/Time: 09/10/25 13:19 Attending Provider: Kita Triplett Admit Provider: Ramirez Brewer Primary Care Provider: Rodney Moreira Other Providers: Suman Schilling; Ramirez Brewer; [facility] F[facility] Other Interventions: Discharge Summary Assessment (RN) Last Done: 09/12/25 14:23
== END 2025-09-12 15:35 | disposition home health service (06) ==
LOC: 3W 11:00 → ED 11:00 → 3W 12:35 → SUATTDRO 13:19